=== PATIENT | female | born 1955 | race African-American/Black ===

== ENCOUNTER 2016-10-30 12:49 | Inpatient (IN) | payer OTHER ==
[~2016-10-30] VITALS: Ht 162.6 cm; Wt 138.0 kg
[2016-10-30] VITALS (9 sets, daily range): BP systolic 109–170; BP diastolic 58–87
[~2016-10-30 12:49] MED LIST: ACET325T21 PO; ALBU2.5V5 NEB; ARIP30TA PO; ATOR40TA59 PO; BACI1OIN5 TP; BREO ELLIPTA 11 EACH IH; BUPR150T11 PO; BUPR75TA5 PO; BUSP15TA PO; BUSP5POW MC; CITA20TA9 PO; CLON0.5T PO; CYCL2DRO OP; FLUT1DIS3 IH; FURO-69 PO; HYDR-2165 PO; HYDR-2666 PO; IBUP-1007 PO; LABE100T3 PO; LEVO25TA4 PO; LISI10TA2 PO; LOPE1TAB4 PO; METO25TA9 PO; NAPR500T PO; OMEP20CA9 PO; PANT40TA3 PO; PHEN118S5 PO; QUET25TA5 PO; TRAZ100T12 PO; VENTOLIN HFA18 GM INH
[2016-10-30] MEDS ORDERED: KETOROLAC 15 MG/ML VIAL. IV ONE (13:15)
[2016-10-30 13:19] LABS: BASE EXCESS COOX 11 mmol/L (-3-3); CARBON MONOXIDE 0.5 % (0.0-1.9); HCO3 COOX 41 mmol/L (21-28); METHEMOGLOBIN 0.3 % (0.0-1.9); OXYHEMOGLOBIN 85.4 %; PH COOX 7.25 (7.35-7.45); PO2 COOX 61 mmHg (65-108); SAT O2 COOX 86 % (92-99); TOTAL HEMOGLOBIN 10.3 g/dL
--- NOTE | 2016-10-30 13:21 | EKG ---
[facility] [address] [place] [address] Test Date: 2016-10-30 Test Time: 12:56:34 Pat Name: REYES PORTILLO Department: Room: Gender: F Third Helper: GARIMA : 1955 Requested By: Chris ARGUETA Order Number: [id number] Reading MD: Measurements Intervals [place] Rate: 75 P: 20 OK: 200 QRS: -37 QRSD: 90 T: 41 QT: 422 QTc: 474 Interpretive Statements SINUS RHYTHM ABNORMAL LEFT AXIS DEVIATION LEFT ANTERIOR FASCICULAR BLOCK PROLONGED QT ABNORMAL ECG RI6.01 No previous ECG available for comparison
[2016-10-30 13:23] LABS: FIO2 COOX 36; PCO2 COOX 95 mmHg (35-46)
--- NOTE | 2016-10-30 13:32 | PHYS DOC ---
Past Medical History Past Medical History: Alcoholism, Anemia, Anxiety, Asthma, Bronchitis, CHF, COPD, Depression, Diabetes-Type II, GERD, High Cholesterol, Hypertension, Hypothyroid, Other Additional Past Medical Histor: MORBID OBESITY, SUBSTANCE ABUSE, PERSONALITY DISORDER, OA, PVD Past Surgical History: , Tubal ligation Additional Past Surgical Histo: breast surgery, L LEG ORIF Alcohol Use: Sober Additional Information: SOBER > 1 YEAR Drug Use: Cocaine, Marijuana, Methamphetamine Social History Narrative: PREVIOUS USE OF COCAINE,METH,MARIJUANA Adult General Chief Complaint Chief Complaint: SHORTNESS OF BREATH HPI HPI Patient is a 60 year old female who presents by EMS from nursing facility for dyspnea. She notes dry cough, dyspnea, and anterior chest pain with cough worsening over the past few days. States she has months of dyspnea as well. She wears NC 2L at all times. She was started on amoxicillin yesterday by PCP at [place]. She denies myalgia, sore throat, nasal congestion, rash, diarrhea, dysuria. Review of Systems Review of Systems Constitutional: Denies fever or chills [] Eyes: Denies change in visual acuity, redness, or eye pain [] HENT: Denies nasal congestion or sore throat [] Respiratory: Has cough and shortness of breath [] Cardiovascular: No additional information not addressed in HPI [] GI: Denies abdominal pain, nausea, vomiting, bloody stools or diarrhea [] : Denies dysuria or hematuria [] Musculoskeletal: Denies back pain or joint pain [] Integument: Denies rash or skin lesions [] Neurologic: Denies headache, focal weakness or sensory changes [] Endocrine: Denies polyuria or polydipsia [] Current Medications Current Medications Current Medications Medications (Trade) Dose Ordered Sig/Vickie Start Time Stop Time Status Last Admin Dose Admin Ketorolac Tromethamine (Toradol) 15 mg 1X ONCE 10/30/16 13:15 10/30/16 13:16 DC 10/30/16 13:49 15 MG Allergies Allergies Allergies Coded Allergies Type Severity Reaction Last Updated Verified clonidine Allergy Severe swelling 01/13/15 Yes influenza virus vaccine qs (36 mos and up) Allergy Intermediate Yes meperidine HCl Allergy Intermediate 01/13/15 Yes pneumococcal vaccine Allergy Intermediate 09/01/15 Yes I S O L A T I O N *CONTACT* Allergy Unknown 10/16/15 Yes Physical Exam Physical Exam Constitutional: Well developed, well nourished, no acute distress, non-toxic appearance. Sleepy, but arouses to voice [] HENT: Normocephalic, atraumatic, bilateral external ears normal, oropharynx moist, no oral exudates, nose normal. [] Eyes: PERRLA, EOMI, conjunctiva normal, no discharge. [] Neck: Normal range of motion, no tenderness, supple, no stridor. [] Cardiovascular:Heart rate regular rhythm [] Lungs & Thorax: Bilateral breath sounds clear to auscultation [] Abdomen: Bowel sounds normal, soft, no tenderness. [] Skin: Warm, dry, no erythema, no rash. [] Back: No tenderness, no CVA tenderness. [] Extremities: No tenderness, ROM intact, no edema. [] Neurologic: Sleepy but arouses to voice, Oriented X 3, normal motor function, normal sensory function, no focal deficits noted. [] Psychologic: Affect normal, judgement normal, mood normal. [] Current Patient Data Vital Signs Vital Signs Date Time Temp Pulse Resp B/P Pulse Ox O2 Delivery O2 Flow Rate FiO2 10/30/16 12:50 97.9 70 20 180/97 90 Nasal Cannula 5 97.9 Lab Values Laboratory Tests Test 10/30/16 13:07 O2 Saturation 86% (92-99) L Arterial Blood pH 7.25 (7.35-7.45) L Arterial Blood pCO2 at Patient Temp 95mmHg (35-46) *H Arterial Blood pO2 at Patient Temp 61mmHg (65-108) L Arterial Blood HCO3 41mmol/L (21-28) H Arterial Blood Base Excess 11mmol/L (-3-3) H Oxyhemoglobin 85.4% Methemoglobin 0.3% (0.0-1.9) Carbon Monoxide, Quantitative 0.5% (0.0-1.9) FiO2 36 EKG EKG EKG as interpreted by me as normal sinus rhythm, rate 75, no ST-T changes, normal intervals, no ectopy Radiology/Procedures Radiology/Procedures Chest x-ray as interpreted by me with bilateral, right greater than left, infiltrates suggestive of pulmonary edema versus infection Course & Med Decision Making Course & Med Decision Making Pertinent Labs and Imaging studies reviewed. (See chart for details) She has acute hypercarbic hypoxemic respiratory failure likely due to COPD exacerbation with possible pneumonia. Treated with steroids, antibiotics and BiPAP. Also has mild elevation in pro-BNP. She is tolerating BiPAP well. Will admit to ICU. Discussed case with Dr. Martinez, who will admit. Pulmonology and Cardiology consults placed. Dragon Disclaimer Dragon Disclaimer This electronic medical record was generated, in whole or in part, using a voice recognition dictation system. Critical Care Time Critical care time was 40 minutes exclusive of procedures. Departure Departure Impression: Primary Impression: Acute and chronic respiratory failure ([id number]) Additional Impression: COPD exacerbation Disposition: ADMITTED INPATIENT Condition: CRITICAL Referrals: IRAIS KENNEY MD (PCP) Problem Qualifiers Primary Impression: Acute and chronic respiratory failure ([id number]) Respiratory failure complication: hypoxia and hypercapnia Qualified Code: J96.21 - Acute and chronic respiratory failure with hypoxia Chris ARGUETA MD Oct 30, 2016 13:32
[2016-10-30 13:44] LABS: BASO # 0.1 x10^3/uL (0.0-0.2); BASO % 1 % (0-3); EOS % 5 % (0-3); HEMATOCRIT 32.6 % (36.0-47.0); LYMPH # 1.7 x10^3/uL (1.0-4.8); LYMPH % 19 % (24-48); MEAN CORPUSCULAR HEMOGLOBIN 29 pg (25-35); MEAN CORPUSCULAR HGB CONC 31 g/dL (31-37); MEAN CORPUSCULAR VOLUME 94 fL (79-100); MONO % 10 % (0-9); NEUT % 66 % (31-73); PLATELET COUNT 214 x10^3/uL (140-400); RED BLOOD COUNT 3.45 x10^6/uL (3.50-5.40); RED CELL DISTRIBUTION WIDTH 15.2 % (11.5-14.5); WHITE BLOOD COUNT 9.3 x10^3/uL (4.0-11.0)
[2016-10-30] MEDS ORDERED: PIP/TAZO PER PHARMACY MC PRN (13:45)
[2016-10-30] MEDS ORDERED: VANCOMYCIN 2 GM in IV NORMAL SALINE 500ML BAG 500 ML IV ONE (13:45)
[2016-10-30] MEDS ORDERED: VANCOMYCIN PER PHARMACY MC PRN (13:45)
[2016-10-30] MEDS ORDERED: LEVOFLOXACIN PER PHARMACY MC PRN (13:45)
[2016-10-30] MEDS ORDERED: methylPREDNISolone SOD SUCC PF 125 MG/2 ML VIAL. IV ONE (13:45)
[2016-10-30] MEDS ORDERED: PIPERACILLIN/TAZOBACTAM 4.5 GM in IV NORMAL SALINE 100ML 100 ML IV ONE (13:45)
[2016-10-30 13:53] LABS: BILIRUBIN,URINE SMALL (NEG); GLUCOSE,URINE NEGATIVE (NEG); NITRITE,URINE NEGATIVE (NEG); PROTEIN,URINE NEGATIVE (NEG-TRACE); UROBILINOGEN,URINE 0.2 mg/dL (0.2 mg/dL)
[2016-10-30 13:55] LABS: CALCIUM 8.8 mg/dL (8.5-10.1); CREATININE 0.9 mg/dL (0.6-1.0); GFR 77.3; POTASSIUM 3.9 mmol/L (3.5-5.1)
--- NOTE | 2016-10-30 13:55 | RAD ---
Indication shortness of breath. A single view of the chest was obtained and is compared to a study 07/25/2016. Cardiomegaly is unchanged. There are patchy bilateral pulmonary infiltrates suggesting superimposed congestive heart failure. A consolidated pneumonia is not seen. Significant pleural fluid is not present. IMPRESSION: Unchanged cardiomegaly. Patchy pulmonary infiltrates in both lungs is compatible with superimposed congestive heart failure
[2016-10-30] MEDS ORDERED: IV NORMAL SALINE 1000ML BAG 1,000 ML IV SCH (14:01)
[2016-10-30 14:05] LABS: BACTERIA,URINE 0 /HPF (0-FEW); SQUAMOUS EPITHELIAL CELL,UR MOD /LPF
--- NOTE | 2016-10-30 14:12 | ACF ---
Admission Forms Criteria RESPIRATORY FAILURE [facility] Clinical Indications for Admission to Inpatient Care (Place 'X' for any and all applicable criteria): Hospital admission is needed for appropriate care of the patient because of acute respiratory failure or insufficiency as indicated by ANY ONE of the following(1)(2)(3)(4)(5)(6)(7)(8): [ ]I. Mechanical ventilation needed (acute invasive or noninvasive) [X]II. Severe ventilation deficit as indicated by ANY ONE of the following (9) [X]a) Respiratory acidosis (pH less than 7.32 and partial pressure of carbon dioxide greater than 40 mm Hg (5.3 kPa)) [X]b) Partial pressure of carbon dioxide greater than 44 mm Hg (5.9 kPa ) (new) [ ]c) Airflow measurements less than 25% of predicted (eg, peak expiratory flow rate less than 100 L/minute) [ ]d) Forced vital capacity less than 15 mL/kg of ideal body weight, or 50% decrease in vital capacity from baseline [ ]III. Noncardiac pulmonary edema not resolving with rapid emergency treatment (8) [ ]IV. Severe respiratory distress as indicated by ANY ONE of the following: [ ]a) Severe tachypnea (respiratory rate greater than 30, greater than 45 for 6-month-old, greater than 60 for ) [ ]b) Severe hypoxemia (partial pressure of oxygen less than 50 mm Hg ( 6.7 kPa) on greater than 50% oxygen or partial pressure of oxygen to FIO2 ratio less than 200) [ ]c) Mental status deterioration from respiratory disease [ ]V. Airway obstruction or inadequate protection [A](10)(11) The original [employer] content created by [employer] has been revised. The portions of the content which have been revised are identified through the use of italic text or in bold, and [employer] has neither reviewed nor approved the modified material. All other unmodified content is copyright [employer]. Please see references footnoted in the original [employer] edition 2016 Admission Criteria Met?: Yes SAL SWARTZ Oct 30, 2016 14:12
[2016-10-30 14:15] LABS: OBC FLU VALID
[2016-10-30] MEDS ORDERED: ONDANSETRON PF 4 MG/2 ML VIAL. IV PRN ×2 (14:15→15:30)
[2016-10-30] MEDS ORDERED: ACETAMINOPHEN 325 MG TABLET. PO PRN ×3 (14:15→15:30)
[2016-10-30 14:18] LABS: % BASOS 2 % (0-3); % EOS 1 % (0-5)
[2016-10-30 14:19] LABS: PLT ESTIMATE ADEQUATE (ADEQUATE); POLYCHROMASIA PRESENT; STOMATOCYTES MOD
[2016-10-30 14:20] LABS: ANISOCYTOSIS SLIGHT
[2016-10-30] MEDS ORDERED: DO NOT USE 40 MG/0.4 ML DISP.SYRIN SQ SCH (15:30)
[2016-10-30] MEDS ORDERED: ALBUTEROL SULFATE 2.5 MG/3 ML NEBU. NEB PRN ×3 (15:30→15:45)
[2016-10-30] MEDS ORDERED: FUROSEMIDE 40 MG/4 ML VIAL IVP ONE (15:30)
--- NOTE | 2016-10-30 15:30 | PDOC1 ---
History and Physical Date of Admission Date of Admission 10/30/16 Identification/Chief Complaint Chief Complaint sob Problems: Source Source: Chart review, Patient History of Present Illness History of Present Illness HPI HPI Patient is a 60 year old female who presents by EMS from nursing facility for dyspnea. Pt use home o2 2 L. now on bipap in ER. pT admitted having cough, sob, maybe fever ,in SNF, but she is very sleeping, cannot give a good history. pt was here 07/2016 for COPD. She was started on amoxicillin yesterday by PCP at [place]. pt denies chest pain, N/V. Past Medical History Cardiovascular: AFIB, HTN, Hyperlipidemia Pulmonary: COPD, Pneumonia, Other CENTRAL NERVOUS SYSTEM: Other GI: GERD Psych: Anxiety, Bipolar, Depression Renal/: Urinary Incontinence Endocrine: Hypothyroidism Past Surgical History Past Surgical History: Cataract Removal, , Tubal Ligation, Tonsillectomy, Other Family History Family History: No Significant Social History Smoke: No ALCOHOL: none Drugs: None, Cocaine Current Problem List Problem List Problems Medical Problems: (1) Acute and chronic respiratory failure ([id number]) Status: Acute Current Medications Current Medications Current Medications Medications (Trade) Dose Ordered Sig/Vickie Start Time Stop Time Status Last Admin Dose Admin Acetaminophen (Tylenol) 650 mg PRN Q4HRS PRN 10/30/16 14:15 10/31/16 14:14 Fentanyl Citrate 50 mcg 50 mcg PRN Q2HR PRN 10/30/16 14:15 10/31/16 14:14 Ketorolac Tromethamine (Toradol) 15 mg 1X ONCE 10/30/16 13:15 10/30/16 13:16 DC 10/30/16 13:49 15 MG Levofloxacin/ Dextrose 150 ml @ 100 mls/hr Q24H 10/30/16 14:00 Levofloxacin/ Dextrose (Levaquin Per Pharmacy) 1 each PRN DAILY PRN 10/30/16 13:45 Methylprednisolone Sodium Succinate 125 mg 125 mg 1X ONCE 10/30/16 13:45 10/30/16 13:46 DC 10/30/16 13:47 125 MG Ondansetron HCl (Zofran) 4 mg PRN Q8HRS PRN 10/30/16 14:15 10/31/16 14:14 Piperacillin Sod/ Tazobactam Sod (Zosyn Per Pharmacy) 1 each PRN DAILY PRN 3/25/17 13:45 Piperacillin Sod/ Tazobactam Sod 4.5 gm/Sodium Chloride 100 ml @ 200 mls/hr 1X ONCE 10/30/16 13:45 10/30/16 14:14 DC 10/30/16 13:54 200 MLS/HR Piperacillin Sod/ Tazobactam Sod/ Sodium Chloride (Zosyn/Iv Sodium Chloride 0.9% 100ml) 100 ml @ 200 mls/hr Q6HRS 10/31/16 00:00 Sodium Chloride (Iv Sodium Chloride 0.9% 1000ml Bag) 1,000 ml @ 100 mls/hr Q10H 10/30/16 14:01 10/31/16 14:00 Vancomycin HCl (Vanco Per Pharmacy) 1 each PRN DAILY PRN 10/30/16 13:45 Vancomycin HCl 2 gm/Sodium Chloride 500 ml @ 250 mls/hr 1X ONCE 10/30/16 13:45 10/30/16 15:44 Allergies Allergies Allergies Coded Allergies Type Severity Reaction Last Updated Verified clonidine Allergy Severe swelling 01/13/15 Yes influenza virus vaccine qs 2014- (36 mos and up) Allergy Intermediate Yes meperidine HCl Allergy Intermediate 01/13/15 Yes pneumococcal vaccine Allergy Intermediate 09/01/15 Yes I S O L A T I O N *CONTACT* Allergy Unknown 10/16/15 Yes ROS Review of System CONSTITUTIONAL: No fever or chills EYES: No recent changes SKIN: No rash or itching CARDIOVASCULAR: No chest pain, syncope, palpitations, or edema RESPIRATORY: No SOB or cough GASTROINTESTINAL: No nausea, vomiting or abdominal pain NEUROLOGICAL: No headaches or weakness ENDOCRINE: No cold or heat intolerance GENITOURINARY: No urgency or frequency of urination MUSCULOSKELETAL: No back pain or joint pain LYMPHATICS: No enlarged lymph nodes PSYCHIATRIC: No anxiety or depression Physical Exam Physical Exam GEN.: No apparent distress. Alert and orientedx3, very sleepy, arousable. follow commands HEENT: Head is normocephalic, atraumatic NECK: Supple. LUNGS: bl mild wheezing, on bipap. HEART: RRR, S1, S2 present. Peripheral pulses intact ABDOMEN: Soft, nontender. Positive bowel sounds. obese. EXTREMITIES: Without any cyanosis. bl leg 1+ edema NEUROLOGIC: Normal speech, normal tone PSYCHIATRIC: Normal affect, normal mood. SKIN: No ulcerations Vitals Vitals Vital Signs Date Time Temp Pulse Resp B/P Pulse Ox O2 Delivery O2 Flow Rate FiO2 10/30/16 14:22 69 22 147/73 96 BiPAP/CPAP 10/30/16 12:50 97.9 5 97.9 Labs Labs Laboratory Tests Test 10/30/16 13:07 10/30/16 13:35 10/30/16 13:42 10/30/16 13:44 O2 Saturation 86% (92-99) Arterial Blood pH 7.25 (7.35-7.45) Arterial Blood pCO2 at Patient Temp 95mmHg (35-46) Arterial Blood pO2 at Patient Temp 61mmHg (65-108) Arterial Blood HCO3 41mmol/L (21-28) Arterial Blood Base Excess 11mmol/L (-3-3) Oxyhemoglobin 85.4% Methemoglobin 0.3% (0.0-1.9) Carbon Monoxide, Quantitative 0.5% (0.0-1.9) FiO2 36 White Blood Count 9.3x10^3/uL (4.0-11.0) Red Blood Count 3.45x10^6/uL (3.50-5.40) Hemoglobin 10.0g/dL (12.0-15.5) Hematocrit 32.6% (36.0-47.0) Mean Corpuscular Volume 94fL (79-100) Mean Corpuscular Hemoglobin 29pg (25-35) Mean Corpuscular Hemoglobin Concent 31g/dL (31-37) Red Cell Distribution Width 15.2% (11.5-14.5) Platelet Count 214x10^3/uL (140-400) Neutrophils (%) (Auto) 66% (31-73) Lymphocytes (%) (Auto) 19% (24-48) Monocytes (%) (Auto) 10% (0-9) Eosinophils (%) (Auto) 5% (0-3) Basophils (%) (Auto) 1% (0-3) Neutrophils # (Auto) 6.1x10^3uL (1.8-7.7) Lymphocytes # (Auto) 1.7x10^3/uL (1.0-4.8) Monocytes # (Auto) 0.9x10^3/uL (0.0-1.1) Eosinophils # (Auto) 0.5x10^3/uL (0.0-0.7) Basophils # (Auto) 0.1x10^3/uL (0.0-0.2) Segmented Neutrophils % 65% (35-66) Lymphocytes % 21% (24-48) Atypical Lymphocytes % (Manual) 1% (0-0) Monocytes % 8% (0-10) Eosinophils % 1% (0-5) Basophils % 2% (0-3) Metamyelocytes % 1% (0-0) Myelocytes % 1% (0-0) Platelet Estimate Adequate (ADEQUATE) Giant Platelets Few Polychromasia Present Basophilic Stippling Present Anisocytosis Slight Stomatocytes Mod Sodium Level 144mmol/L (136-145) Potassium Level 3.9mmol/L (3.5-5.1) Chloride Level 101mmol/L (98-107) Carbon Dioxide Level 38mmol/L (21-32) Anion Gap 5 (6-14) Blood Urea Nitrogen 9mg/dL (7-20) Creatinine 0.9mg/dL (0.6-1.0) Estimated GFR (Cockcroft-Gault) 77.3 Glucose Level 103mg/dL (70-99) Lactic Acid Level 0.7mmol/L (0.4-2.0) Calcium Level 8.8mg/dL (8.5-10.1) Troponin I Quantitative < 0.017ng/mL (0.000-0.055) PI-Qim-U-Type Natriuretic Peptide 2021pg/mL (0-124) Urine Collection Type Unknown Urine Color Yellow Urine Clarity Clear Urine pH 6.0 Urine Specific [place] 1.025 Urine Protein Negativemg/dL (NEG-TRACE) Urine Glucose (UA) Negativemg/dL (NEG) Urine Ketones (Stick) Negativemg/dL (NEG) Urine Blood Negative (NEG) Urine Nitrite Negative (NEG) Urine Bilirubin Small (NEG) Urine Urobilinogen Dipstick 0.2mg/dL (0.2 mg/dL) Urine Leukocyte Esterase Small (NEG) Urine RBC 3-5/HPF (0-2) Urine WBC 11-20/HPF (0-4) Urine Squamous Epithelial Cells Mod/LPF Urine Bacteria 0/HPF (0-FEW) Urine Hyaline Casts Many/HPF Urine Mucus Mod/LPF Influenza Type A Antigen Negative (NEGATIVE) Influenza Type B Antigen Negative (NEGATIVE) Laboratory Tests Test 10/30/16 13:07 10/30/16 13:35 10/30/16 13:42 10/30/16 13:44 O2 Saturation 86% (92-99) Arterial Blood pH 7.25 (7.35-7.45) Arterial Blood pCO2 at Patient Temp 95mmHg (35-46) Arterial Blood pO2 at Patient Temp 61mmHg (65-108) Arterial Blood HCO3 41mmol/L (21-28) Arterial Blood Base Excess 11mmol/L (-3-3) Oxyhemoglobin 85.4% Methemoglobin 0.3% (0.0-1.9) Carbon Monoxide, Quantitative 0.5% (0.0-1.9) FiO2 36 White Blood Count 9.3x10^3/uL (4.0-11.0) Red Blood Count 3.45x10^6/uL (3.50-5.40) Hemoglobin 10.0g/dL (12.0-15.5) Hematocrit 32.6% (36.0-47.0) Mean Corpuscular Volume 94fL (79-100) Mean Corpuscular Hemoglobin 29pg (25-35) Mean Corpuscular Hemoglobin Concent 31g/dL (31-37) Red Cell Distribution Width 15.2% (11.5-14.5) Platelet Count 214x10^3/uL (140-400) Neutrophils (%) (Auto) 66% (31-73) Lymphocytes (%) (Auto) 19% (24-48) Monocytes (%) (Auto) 10% (0-9) Eosinophils (%) (Auto) 5% (0-3) Basophils (%) (Auto) 1% (0-3) Neutrophils # (Auto) 6.1x10^3uL (1.8-7.7) Lymphocytes # (Auto) 1.7x10^3/uL (1.0-4.8) Monocytes # (Auto) 0.9x10^3/uL (0.0-1.1) Eosinophils # (Auto) 0.5x10^3/uL (0.0-0.7) Basophils # (Auto) 0.1x10^3/uL (0.0-0.2) Segmented Neutrophils % 65% (35-66) Lymphocytes % 21% (24-48) Atypical Lymphocytes % (Manual) 1% (0-0) Monocytes % 8% (0-10) Eosinophils % 1% (0-5) Basophils % 2% (0-3) Metamyelocytes % 1% (0-0) Myelocytes % 1% (0-0) Platelet Estimate Adequate (ADEQUATE) Giant Platelets Few Polychromasia Present Basophilic Stippling Present Anisocytosis Slight Stomatocytes Mod Sodium Level 144mmol/L (136-145) Potassium Level 3.9mmol/L (3.5-5.1) Chloride Level 101mmol/L (98-107) Carbon Dioxide Level 38mmol/L (21-32) Anion Gap 5 (6-14) Blood Urea Nitrogen 9mg/dL (7-20) Creatinine 0.9mg/dL (0.6-1.0) Estimated GFR (Cockcroft-Gault) 77.3 Glucose Level 103mg/dL (70-99) Lactic Acid Level 0.7mmol/L (0.4-2.0) Calcium Level 8.8mg/dL (8.5-10.1) Troponin I Quantitative < 0.017ng/mL (0.000-0.055) UZ-Bvm-M-Type Natriuretic Peptide 2021pg/mL (0-124) Urine Collection Type Unknown Urine Color Yellow Urine Clarity Clear Urine pH 6.0 Urine Specific [place] 1.025 Urine Protein Negativemg/dL (NEG-TRACE) Urine Glucose (UA) Negativemg/dL (NEG) Urine Ketones (Stick) Negativemg/dL (NEG) Urine Blood Negative (NEG) Urine Nitrite Negative (NEG) Urine Bilirubin Small (NEG) Urine Urobilinogen Dipstick 0.2mg/dL (0.2 mg/dL) Urine Leukocyte Esterase Small (NEG) Urine RBC 3-5/HPF (0-2) Urine WBC 11-20/HPF (0-4) Urine Squamous Epithelial Cells Mod/LPF Urine Bacteria 0/HPF (0-FEW) Urine Hyaline Casts Many/HPF Urine Mucus Mod/LPF Influenza Type A Antigen Negative (NEGATIVE) Influenza Type B Antigen Negative (NEGATIVE) VTE Prophylaxis Ordered VTE Prophylaxis Devices: Yes VTE Pharmacological Prophylaxi: Yes Assessment/Plan Assessment/Plan 1. acute on chronic hypoxic and hypercapnic resp failure 2. copd exacerbation 3. acute on chronic diastolic chf 4. obesity hypoventilation 5. dm2, no meds 6. htn 7. hld 8. hypothyroidism 9. anemia, chronic 10. h/o alcoholism 11. anxiety, personality disorder 12. SNF resident 13. h/o drug abuse plan: 1. pulm, card consult 2. chest CT 3. dc zosyn, vanco, cont levaquin for now duoneb, solumedrol 4. lasix x1 5. cont home meds, hold sedative meds for now 6. bipap for now, ICU care 7. labs tmr. check drug tox. ptot dvt, gi ppx BRUNA WILLIAMSON MD Oct 30, 2016 15:30
[2016-10-30] MEDS: LISINOPRIL 10 MG TABLET PO SCH (16:00)
[2016-10-30] MEDS: METOPROLOL SUCC 24HR ER 25 MG TAB.ER.24H. PO SCH (16:00)
[2016-10-30] MEDS: IPRATRPIUM/ALBUTEROL 0.5/2.5MG 3 ML NEBU. NEB SCH ×2 (16:00→20:27)
[2016-10-30] MEDS: methylPREDNISolone SOD SUCC PF 125 MG/2 ML VIAL. IV SCH ×2 (17:54→21:07)
[2016-10-30] MEDS ORDERED: DEXTROSE 50% 25 GM / 50ML DISP.SYRIN. IV PRN (19:15)
[2016-10-30 19:16] LABS: BARBITURATES NEG (NEG); BENZODIAZEPINES NEG (NEG); CANNABINOIDS NEG (NEG); COCAINE NEG (NEG); METHADONE NEG (NEG); OPIATES POS (NEG); PHENCYCLIDINE NEG (NEG)
[2016-10-30 19:23] LABS: ETHANOL, URINE NEG (NEG)
[2016-10-30] MEDS: BUDESONIDE 0.5 MG/2 ML NEBU. NEB SCH (20:27)
[2016-10-30] MEDS: busPIRone 5 MG TABLET. PO SCH (21:00)
[2016-10-30] MEDS: ATORVASTATIN CALCIUM 40 MG TABLET. PO SCH (21:00)
[2016-10-30] MEDS: CITALOPRAM 20 MG TABLET. PO SCH (21:00)
[2016-10-30] MEDS: buPROPion SR 150 MG TABLET.SA PO SCH (21:00)
[2016-10-30] MEDS ORDERED: ENOXAPARIN ** NOTE DOSE ** SYRINGE SQ SCH (21:00)
[2016-10-31] VITALS (13 sets, daily range): BP systolic 94–179; BP diastolic 40–91
[2016-10-31] MEDS ORDERED: PIPERACILLIN/TAZOBACTAM 4.5 GM in IV NORMAL SALINE 100ML 100 ML IV SCH ×2
[2016-10-31] MEDS: FENTANYL PF 100 MCG/2 ML VIAL. IV PRN ×2 (02:17→05:00)
[2016-10-31] MEDS: methylPREDNISolone SOD SUCC PF 125 MG/2 ML VIAL. IV SCH (05:00)
[2016-10-31 05:22] LABS: BASO % 0 % (0-3); EOS % 0 % (0-3); HEMATOCRIT 31.7 % (36.0-47.0); HEMOGLOBIN 9.9 g/dL (12.0-15.5); LYMPH # 0.7 x10^3/uL (1.0-4.8); LYMPH % 8 % (24-48); MEAN CORPUSCULAR HEMOGLOBIN 29 pg (25-35); MEAN CORPUSCULAR HGB CONC 31 g/dL (31-37); MEAN CORPUSCULAR VOLUME 93 fL (79-100); MONO % 1 % (0-9); NEUT % 91 % (31-73); PLATELET COUNT 193 x10^3/uL (140-400); RED BLOOD COUNT 3.42 x10^6/uL (3.50-5.40); RED CELL DISTRIBUTION WIDTH 14.6 % (11.5-14.5)
[2016-10-31 05:32] LABS: CALCIUM 8.9 mg/dL (8.5-10.1); CREATININE 0.8 mg/dL (0.6-1.0); GFR 88.5; POTASSIUM 3.7 mmol/L (3.5-5.1)
[2016-10-31 06:18] LABS: PLT ESTIMATE ADEQUATE (ADEQUATE)
[2016-10-31] MEDS: LEVOTHYROXINE 25 MCG TABLET. PO SCH (07:00)
[2016-10-31] MEDS: PANTOPRAZOLE 40 MG TABLET. PO SCH (07:30)
[2016-10-31] MEDS: BUDESONIDE 0.5 MG/2 ML NEBU. NEB SCH ×2 (07:36→19:55)
[2016-10-31] MEDS: IPRATRPIUM/ALBUTEROL 0.5/2.5MG 3 ML NEBU. NEB SCH ×4 (07:37→19:55)
[2016-10-31] MEDS: INSULIN ASPART 300 UNITS/3 ML INSULN.PEN SQ SCH ×5 (08:00→17:00)
[2016-10-31] MEDS: METOPROLOL SUCC 24HR ER 25 MG TAB.ER.24H. PO SCH (09:00)
[2016-10-31] MEDS: busPIRone 5 MG TABLET. PO SCH ×3 (09:00→21:00)
[2016-10-31] MEDS: buPROPion SR 150 MG TABLET.SA PO SCH ×3 (09:00→21:00)
[2016-10-31] MEDS: LISINOPRIL 10 MG TABLET PO SCH (09:00)
--- NOTE | 2016-10-31 09:26 | PDOC ---
Provider Note Provider Note CARDIOLOGY CONSULTATION NOTE: HPI; Ms. Schmidt is a 60 y.o woman presenting with dyspnea for 2 weeks. In the ER she was diagnosed with possible HF and given Lasix 40mg IVP. Since then, she has done better and now transitioned to [place] from . Today denies any chest pain but her history is quite limited. She appears to be confused at the moment. Denies any dyspnea. PAST MEDICAL HISTORY: 1. Atrial fibrillation. 2. Hypertension. 3. Dyslipidemia. 4. COPD. 5. Hypothyroidism. 6. Morbid obesity. PAST SURGICAL HISTORY: Cataracts, , tubal ligation, ORIF of the left femur. FAMILY HISTORY: Noncontributory. SOCIAL HISTORY: No alcohol, tobacco or illicit drug use. She currently lives in a long term. She reports that she has not used cocaine or tobacco products for over a year. ALLERGIES: Multiple to clonidine and influenza vaccine, meperidine and pneumococcal vaccine. CURRENT CARDIOVASCULAR MEDICATIONS: As follows: 1. Atorvastatin 40 mg daily. 2. Lovenox 60 mg b.i.d. 3. Metoprolol 25 mg XL. 4. Lisinopril 10 mg daily. REVIEW OF SYSTEMS: Negative for 05/21 systems reviewed, unless otherwise mentioned above in HPI. PHYSICAL EXAMINATION: VITAL SIGNS: Afebrile, HR 80's. (Initially hypertensive, now better controlled 140/80's). Pox- 96% on 2L GENERAL: She is alert and oriented, in no acute distress. Mildly tachypneic. HEART: Regular rate and rhythm without any murmurs, rubs, or gallops. LUNGS: Clear to auscultation bilaterally. ABDOMEN: Obese, nontender, nondistended. EXTREMITIES: No clubbing, cyanosis, or edema. NEUROLOGIC: No focal deficits. SKIN: No rashes. MUSCULOSKELETAL: No trauma. DIAGNOSTIC STUDIES: EKG reveals SR. No ischemic findings. CXR with possible vascular congestion. CT chest pending Trop neg x 1. Echo 10/2015 - Normal LV function. IMPRESSION: 1. Acute on chronic diastolic HF. 2. Atrial fibrillation history, currently on Lovenox 60mg sc bid. 3. Hypertension. 4. Morbid obesity. 5. Polysubstance abuse. RECS: 1. Continue diuresis today. 2. Continue home meds but clarify reason for Lovenox 60mg bid? afib?. 3. Will repeat echo. 4. Consider neurologic evaluation for her mentation changes, suspect metabolic encephalopathy. Thanks for consultation. MARIE CARABALLO MD Oct 31, 2016 09:26
[2016-10-31] MEDS ORDERED: DEXTROSE 50% 25 GM / 50ML DISP.SYRIN. IV PRN (10:15)
--- NOTE | 2016-10-31 10:15 | PDOC ---
PROGRESS NOTES Chief Complaint Chief Complaint 1. acute on chronic hypoxic and hypercapnic resp failure 2. copd exacerbation 3. acute on chronic diastolic chf 4. obesity hypoventilation 5. dm2, no meds 6. htn 7. hld 8. hypothyroidism 9. anemia, chronic 10. h/o alcoholism 11. anxiety, personality disorder 12. SNF resident 13. h/o drug abuse 14. MEtabolc encephalopathy, cognitive impairment History of Present Illness History of Present Illness COnfused, does "not believe" she is in the hospital She claims she is SNU Needed BIPAP short time? SNU resident for 1.5 yrs Wants to talk to her family bec she does not want to live in SNU anymore, claims she can take care of herself (she cant) CXR I have personally reviewed: IMPRESSION: Unchanged cardiomegaly. Patchy pulmonary infiltrates in both lungs is compatible with superimposed congestive heart failure AMbulates with wheelchair in SNU PLAN: Ok to eat OK to t.o ICU CPM PT./OT Back to SNU upon dc Follow pulmo and cards recs Vitals Vitals Vital Signs Date Time Temp Pulse Resp B/P Pulse Ox O2 Delivery O2 Flow Rate FiO2 10/31/16 08:51 94 BiPAP/CPAP 10/31/16 08:00 97.7 86 25 151/66 97.7 10/31/16 04:00 5.0 Physical Exam General: Alert, Cooperative, No acute distress Heart: Regular rate, Normal S1, Normal S2, No murmurs Lungs: Clear Abdomen: No tenderness, No hepatosplenomegaly Extremities: No clubbing, No cyanosis, No edema, Normal pulses Skin: No rashes, No breakdown, No significant lesion Labs LABS Laboratory Tests Test 10/30/16 13:07 10/30/16 13:35 10/30/16 13:42 10/30/16 13:44 O2 Saturation 86% (92-99) Arterial Blood pH 7.25 (7.35-7.45) Arterial Blood pCO2 at Patient Temp 95mmHg (35-46) Arterial Blood pO2 at Patient Temp 61mmHg (65-108) Arterial Blood HCO3 41mmol/L (21-28) Arterial Blood Base Excess 11mmol/L (-3-3) Oxyhemoglobin 85.4% Methemoglobin 0.3% (0.0-1.9) Carbon Monoxide, Quantitative 0.5% (0.0-1.9) FiO2 36 White Blood Count 9.3x10^3/uL (4.0-11.0) Red Blood Count 3.45x10^6/uL (3.50-5.40) Hemoglobin 10.0g/dL (12.0-15.5) Hematocrit 32.6% (36.0-47.0) Mean Corpuscular Volume 94fL (79-100) Mean Corpuscular Hemoglobin 29pg (25-35) Mean Corpuscular Hemoglobin Concent 31g/dL (31-37) Red Cell Distribution Width 15.2% (11.5-14.5) Platelet Count 214x10^3/uL (140-400) Neutrophils (%) (Auto) 66% (31-73) Lymphocytes (%) (Auto) 19% (24-48) Monocytes (%) (Auto) 10% (0-9) Eosinophils (%) (Auto) 5% (0-3) Basophils (%) (Auto) 1% (0-3) Neutrophils # (Auto) 6.1x10^3uL (1.8-7.7) Lymphocytes # (Auto) 1.7x10^3/uL (1.0-4.8) Monocytes # (Auto) 0.9x10^3/uL (0.0-1.1) Eosinophils # (Auto) 0.5x10^3/uL (0.0-0.7) Basophils # (Auto) 0.1x10^3/uL (0.0-0.2) Segmented Neutrophils % 65% (35-66) Lymphocytes % 21% (24-48) Atypical Lymphocytes % (Manual) 1% (0-0) Monocytes % 8% (0-10) Eosinophils % 1% (0-5) Basophils % 2% (0-3) Metamyelocytes % 1% (0-0) Myelocytes % 1% (0-0) Platelet Estimate Adequate (ADEQUATE) Giant Platelets Few Polychromasia Present Basophilic Stippling Present Anisocytosis Slight Stomatocytes Mod Sodium Level 144mmol/L (136-145) Potassium Level 3.9mmol/L (3.5-5.1) Chloride Level 101mmol/L (98-107) Carbon Dioxide Level 38mmol/L (21-32) Anion Gap 5 (6-14) Blood Urea Nitrogen 9mg/dL (7-20) Creatinine 0.9mg/dL (0.6-1.0) Estimated GFR (Cockcroft-Gault) 77.3 Glucose Level 103mg/dL (70-99) Lactic Acid Level 0.7mmol/L (0.4-2.0) Calcium Level 8.8mg/dL (8.5-10.1) Troponin I Quantitative < 0.017ng/mL (0.000-0.055) SF-Apj-M-Type Natriuretic Peptide 2021pg/mL (0-124) Urine Collection Type Unknown Urine Color Yellow Urine Clarity Clear Urine pH 6.0 Urine Specific [place] 1.025 Urine Protein Negativemg/dL (NEG-TRACE) Urine Glucose (UA) Negativemg/dL (NEG) Urine Ketones (Stick) Negativemg/dL (NEG) Urine Blood Negative (NEG) Urine Nitrite Negative (NEG) Urine Bilirubin Small (NEG) Urine Urobilinogen Dipstick 0.2mg/dL (0.2 mg/dL) Urine Leukocyte Esterase Small (NEG) Urine RBC 3-5/HPF (0-2) Urine WBC 11-20/HPF (0-4) Urine Squamous Epithelial Cells Mod/LPF Urine Bacteria 0/HPF (0-FEW) Urine Hyaline Casts Many/HPF Urine Mucus Mod/LPF Influenza Type A Antigen Negative (NEGATIVE) Influenza Type B Antigen Negative (NEGATIVE) Test 10/30/16 18:50 10/30/16 21:05 10/31/16 04:45 Urine Opiates Screen Pos (NEG) Urine Methadone Screen Neg (NEG) Urine Barbiturates Neg (NEG) Urine Phencyclidine Screen Neg (NEG) Urine Amphetamine/Methamphetamine Neg (NEG) Urine Benzodiazepines Screen Neg (NEG) Urine Cocaine Screen Neg (NEG) Urine Cannabinoids Screen Neg (NEG) Urine Ethyl Alcohol Neg (NEG) Glucose (Fingerstick) 117mg/dL (70-99) White Blood Count 9.0x10^3/uL (4.0-11.0) Red Blood Count 3.42x10^6/uL (3.50-5.40) Hemoglobin 9.9g/dL (12.0-15.5) Hematocrit 31.7% (36.0-47.0) Mean Corpuscular Volume 93fL (79-100) Mean Corpuscular Hemoglobin 29pg (25-35) Mean Corpuscular Hemoglobin Concent 31g/dL (31-37) Red Cell Distribution Width 14.6% (11.5-14.5) Platelet Count 193x10^3/uL (140-400) Neutrophils (%) (Auto) 91% (31-73) Lymphocytes (%) (Auto) 8% (24-48) Monocytes (%) (Auto) 1% (0-9) Eosinophils (%) (Auto) 0% (0-3) Basophils (%) (Auto) 0% (0-3) Neutrophils # (Auto) 8.2x10^3uL (1.8-7.7) Lymphocytes # (Auto) 0.7x10^3/uL (1.0-4.8) Monocytes # (Auto) 0.1x10^3/uL (0.0-1.1) Eosinophils # (Auto) 0.0x10^3/uL (0.0-0.7) Basophils # (Auto) 0.0x10^3/uL (0.0-0.2) Segmented Neutrophils % 83% (35-66) Band Neutrophils % 5% (0-9) Lymphocytes % 10% (24-48) Monocytes % 1% (0-10) Metamyelocytes % 1% (0-0) Platelet Estimate Adequate (ADEQUATE) Sodium Level 144mmol/L (136-145) Potassium Level 3.7mmol/L (3.5-5.1) Chloride Level 100mmol/L (98-107) Carbon Dioxide Level 40mmol/L (21-32) Anion Gap 4 (6-14) Blood Urea Nitrogen 8mg/dL (7-20) Creatinine 0.8mg/dL (0.6-1.0) Estimated GFR (Cockcroft-Gault) 88.5 Glucose Level 119mg/dL (70-99) Calcium Level 8.9mg/dL (8.5-10.1) Review of Systems Review of Systems confused limited ROS Assessment and Plan Assessmemt and Plan Problems Medical Problems: (1) Acute and chronic respiratory failure ([id number]) Status: Acute (2) COPD exacerbation Status: Acute Problems: Comment Review of Relevant I have reviewed the following items doyle (where applicable) has been applied. Labs Laboratory Tests Test 10/30/16 13:07 10/30/16 13:35 10/30/16 13:42 10/30/16 13:44 O2 Saturation 86% (92-99) Arterial Blood pH 7.25 (7.35-7.45) Arterial Blood pCO2 at Patient Temp 95mmHg (35-46) Arterial Blood pO2 at Patient Temp 61mmHg (65-108) Arterial Blood HCO3 41mmol/L (21-28) Arterial Blood Base Excess 11mmol/L (-3-3) Oxyhemoglobin 85.4% Methemoglobin 0.3% (0.0-1.9) Carbon Monoxide, Quantitative 0.5% (0.0-1.9) FiO2 36 White Blood Count 9.3x10^3/uL (4.0-11.0) Red Blood Count 3.45x10^6/uL (3.50-5.40) Hemoglobin 10.0g/dL (12.0-15.5) Hematocrit 32.6% (36.0-47.0) Mean Corpuscular Volume 94fL (79-100) Mean Corpuscular Hemoglobin 29pg (25-35) Mean Corpuscular Hemoglobin Concent 31g/dL (31-37) Red Cell Distribution Width 15.2% (11.5-14.5) Platelet Count 214x10^3/uL (140-400) Neutrophils (%) (Auto) 66% (31-73) Lymphocytes (%) (Auto) 19% (24-48) Monocytes (%) (Auto) 10% (0-9) Eosinophils (%) (Auto) 5% (0-3) Basophils (%) (Auto) 1% (0-3) Neutrophils # (Auto) 6.1x10^3uL (1.8-7.7) Lymphocytes # (Auto) 1.7x10^3/uL (1.0-4.8) Monocytes # (Auto) 0.9x10^3/uL (0.0-1.1) Eosinophils # (Auto) 0.5x10^3/uL (0.0-0.7) Basophils # (Auto) 0.1x10^3/uL (0.0-0.2) Segmented Neutrophils % 65% (35-66) Lymphocytes % 21% (24-48) Atypical Lymphocytes % (Manual) 1% (0-0) Monocytes % 8% (0-10) Eosinophils % 1% (0-5) Basophils % 2% (0-3) Metamyelocytes % 1% (0-0) Myelocytes % 1% (0-0) Platelet Estimate Adequate (ADEQUATE) Giant Platelets Few Polychromasia Present Basophilic Stippling Present Anisocytosis Slight Stomatocytes Mod Sodium Level 144mmol/L (136-145) Potassium Level 3.9mmol/L (3.5-5.1) Chloride Level 101mmol/L (98-107) Carbon Dioxide Level 38mmol/L (21-32) Anion Gap 5 (6-14) Blood Urea Nitrogen 9mg/dL (7-20) Creatinine 0.9mg/dL (0.6-1.0) Estimated GFR (Cockcroft-Gault) 77.3 Glucose Level 103mg/dL (70-99) Lactic Acid Level 0.7mmol/L (0.4-2.0) Calcium Level 8.8mg/dL (8.5-10.1) Troponin I Quantitative < 0.017ng/mL (0.000-0.055) DE-Tni-E-Type Natriuretic Peptide 2021pg/mL (0-124) Urine Collection Type Unknown Urine Color Yellow Urine Clarity Clear Urine pH 6.0 Urine Specific [place] 1.025 Urine Protein Negativemg/dL (NEG-TRACE) Urine Glucose (UA) Negativemg/dL (NEG) Urine Ketones (Stick) Negativemg/dL (NEG) Urine Blood Negative (NEG) Urine Nitrite Negative (NEG) Urine Bilirubin Small (NEG) Urine Urobilinogen Dipstick 0.2mg/dL (0.2 mg/dL) Urine Leukocyte Esterase Small (NEG) Urine RBC 3-5/HPF (0-2) Urine WBC 11-20/HPF (0-4) Urine Squamous Epithelial Cells Mod/LPF Urine Bacteria 0/HPF (0-FEW) Urine Hyaline Casts Many/HPF Urine Mucus Mod/LPF Influenza Type A Antigen Negative (NEGATIVE) Influenza Type B Antigen Negative (NEGATIVE) Test 10/30/16 18:50 10/30/16 21:05 10/31/16 04:45 Urine Opiates Screen Pos (NEG) Urine Methadone Screen Neg (NEG) Urine Barbiturates Neg (NEG) Urine Phencyclidine Screen Neg (NEG) Urine Amphetamine/Methamphetamine Neg (NEG) Urine Benzodiazepines Screen Neg (NEG) Urine Cocaine Screen Neg (NEG) Urine Cannabinoids Screen Neg (NEG) Urine Ethyl Alcohol Neg (NEG) Glucose (Fingerstick) 117mg/dL (70-99) White Blood Count 9.0x10^3/uL (4.0-11.0) Red Blood Count 3.42x10^6/uL (3.50-5.40) Hemoglobin 9.9g/dL (12.0-15.5) Hematocrit 31.7% (36.0-47.0) Mean Corpuscular Volume 93fL (79-100) Mean Corpuscular Hemoglobin 29pg (25-35) Mean Corpuscular Hemoglobin Concent 31g/dL (31-37) Red Cell Distribution Width 14.6% (11.5-14.5) Platelet Count 193x10^3/uL (140-400) Neutrophils (%) (Auto) 91% (31-73) Lymphocytes (%) (Auto) 8% (24-48) Monocytes (%) (Auto) 1% (0-9) Eosinophils (%) (Auto) 0% (0-3) Basophils (%) (Auto) 0% (0-3) Neutrophils # (Auto) 8.2x10^3uL (1.8-7.7) Lymphocytes # (Auto) 0.7x10^3/uL (1.0-4.8) Monocytes # (Auto) 0.1x10^3/uL (0.0-1.1) Eosinophils # (Auto) 0.0x10^3/uL (0.0-0.7) Basophils # (Auto) 0.0x10^3/uL (0.0-0.2) Segmented Neutrophils % 83% (35-66) Band Neutrophils % 5% (0-9) Lymphocytes % 10% (24-48) Monocytes % 1% (0-10) Metamyelocytes % 1% (0-0) Platelet Estimate Adequate (ADEQUATE) Sodium Level 144mmol/L (136-145) Potassium Level 3.7mmol/L (3.5-5.1) Chloride Level 100mmol/L (98-107) Carbon Dioxide Level 40mmol/L (21-32) Anion Gap 4 (6-14) Blood Urea Nitrogen 8mg/dL (7-20) Creatinine 0.8mg/dL (0.6-1.0) Estimated GFR (Cockcroft-Gault) 88.5 Glucose Level 119mg/dL (70-99) Calcium Level 8.9mg/dL (8.5-10.1) Laboratory Tests Test 10/30/16 13:07 10/30/16 13:35 10/30/16 13:42 10/30/16 13:44 O2 Saturation 86% (92-99) Arterial Blood pH 7.25 (7.35-7.45) Arterial Blood pCO2 at Patient Temp 95mmHg (35-46) Arterial Blood pO2 at Patient Temp 61mmHg (65-108) Arterial Blood HCO3 41mmol/L (21-28) Arterial Blood Base Excess 11mmol/L (-3-3) Oxyhemoglobin 85.4% Methemoglobin 0.3% (0.0-1.9) Carbon Monoxide, Quantitative 0.5% (0.0-1.9) FiO2 36 White Blood Count 9.3x10^3/uL (4.0-11.0) Red Blood Count 3.45x10^6/uL (3.50-5.40) Hemoglobin 10.0g/dL (12.0-15.5) Hematocrit 32.6% (36.0-47.0) Mean Corpuscular Volume 94fL (79-100) Mean Corpuscular Hemoglobin 29pg (25-35) Mean Corpuscular Hemoglobin Concent 31g/dL (31-37) Red Cell Distribution Width 15.2% (11.5-14.5) Platelet Count 214x10^3/uL (140-400) Neutrophils (%) (Auto) 66% (31-73) Lymphocytes (%) (Auto) 19% (24-48) Monocytes (%) (Auto) 10% (0-9) Eosinophils (%) (Auto) 5% (0-3) Basophils (%) (Auto) 1% (0-3) Neutrophils # (Auto) 6.1x10^3uL (1.8-7.7) Lymphocytes # (Auto) 1.7x10^3/uL (1.0-4.8) Monocytes # (Auto) 0.9x10^3/uL (0.0-1.1) Eosinophils # (Auto) 0.5x10^3/uL (0.0-0.7) Basophils # (Auto) 0.1x10^3/uL (0.0-0.2) Segmented Neutrophils % 65% (35-66) Lymphocytes % 21% (24-48) Atypical Lymphocytes % (Manual) 1% (0-0) Monocytes % 8% (0-10) Eosinophils % 1% (0-5) Basophils % 2% (0-3) Metamyelocytes % 1% (0-0) Myelocytes % 1% (0-0) Platelet Estimate Adequate (ADEQUATE) Giant Platelets Few Polychromasia Present Basophilic Stippling Present Anisocytosis Slight Stomatocytes Mod Sodium Level 144mmol/L (136-145) Potassium Level 3.9mmol/L (3.5-5.1) Chloride Level 101mmol/L (98-107) Carbon Dioxide Level 38mmol/L (21-32) Anion Gap 5 (6-14) Blood Urea Nitrogen 9mg/dL (7-20) Creatinine 0.9mg/dL (0.6-1.0) Estimated GFR (Cockcroft-Gault) 77.3 Glucose Level 103mg/dL (70-99) Lactic Acid Level 0.7mmol/L (0.4-2.0) Calcium Level 8.8mg/dL (8.5-10.1) Troponin I Quantitative < 0.017ng/mL (0.000-0.055) PK-Odj-G-Type Natriuretic Peptide 2021pg/mL (0-124) Urine Collection Type Unknown Urine Color Yellow Urine Clarity Clear Urine pH 6.0 Urine Specific [place] 1.025 Urine Protein Negativemg/dL (NEG-TRACE) Urine Glucose (UA) Negativemg/dL (NEG) Urine Ketones (Stick) Negativemg/dL (NEG) Urine Blood Negative (NEG) Urine Nitrite Negative (NEG) Urine Bilirubin Small (NEG) Urine Urobilinogen Dipstick 0.2mg/dL (0.2 mg/dL) Urine Leukocyte Esterase Small (NEG) Urine RBC 3-5/HPF (0-2) Urine WBC 11-20/HPF (0-4) Urine Squamous Epithelial Cells Mod/LPF Urine Bacteria 0/HPF (0-FEW) Urine Hyaline Casts Many/HPF Urine Mucus Mod/LPF Influenza Type A Antigen Negative (NEGATIVE) Influenza Type B Antigen Negative (NEGATIVE) Test 10/30/16 18:50 10/30/16 21:05 10/31/16 04:45 Urine Opiates Screen Pos (NEG) Urine Methadone Screen Neg (NEG) Urine Barbiturates Neg (NEG) Urine Phencyclidine Screen Neg (NEG) Urine Amphetamine/Methamphetamine Neg (NEG) Urine Benzodiazepines Screen Neg (NEG) Urine Cocaine Screen Neg (NEG) Urine Cannabinoids Screen Neg (NEG) Urine Ethyl Alcohol Neg (NEG) Glucose (Fingerstick) 117mg/dL (70-99) White Blood Count 9.0x10^3/uL (4.0-11.0) Red Blood Count 3.42x10^6/uL (3.50-5.40) Hemoglobin 9.9g/dL (12.0-15.5) Hematocrit 31.7% (36.0-47.0) Mean Corpuscular Volume 93fL (79-100) Mean Corpuscular Hemoglobin 29pg (25-35) Mean Corpuscular Hemoglobin Concent 31g/dL (31-37) Red Cell Distribution Width 14.6% (11.5-14.5) Platelet Count 193x10^3/uL (140-400) Neutrophils (%) (Auto) 91% (31-73) Lymphocytes (%) (Auto) 8% (24-48) Monocytes (%) (Auto) 1% (0-9) Eosinophils (%) (Auto) 0% (0-3) Basophils (%) (Auto) 0% (0-3) Neutrophils # (Auto) 8.2x10^3uL (1.8-7.7) Lymphocytes # (Auto) 0.7x10^3/uL (1.0-4.8) Monocytes # (Auto) 0.1x10^3/uL (0.0-1.1) Eosinophils # (Auto) 0.0x10^3/uL (0.0-0.7) Basophils # (Auto) 0.0x10^3/uL (0.0-0.2) Segmented Neutrophils % 83% (35-66) Band Neutrophils % 5% (0-9) Lymphocytes % 10% (24-48) Monocytes % 1% (0-10) Metamyelocytes % 1% (0-0) Platelet Estimate Adequate (ADEQUATE) Sodium Level 144mmol/L (136-145) Potassium Level 3.7mmol/L (3.5-5.1) Chloride Level 100mmol/L (98-107) Carbon Dioxide Level 40mmol/L (21-32) Anion Gap 4 (6-14) Blood Urea Nitrogen 8mg/dL (7-20) Creatinine 0.8mg/dL (0.6-1.0) Estimated GFR (Cockcroft-Gault) 88.5 Glucose Level 119mg/dL (70-99) Calcium Level 8.9mg/dL (8.5-10.1) Medications Current Medications Ketorolac Tromethamine (Toradol) 15 mg 1X ONCE IV Last administered on 13:49; Start 10/30/16 at 13:15; Stop 10/30/16 at 13:16; Status DC Vancomycin HCl (Vanco Per Pharmacy) 1 each PRN DAILY PRN MC SEE COMMENTS; Start 10/30/16 at 13:45; Stop 10/30/16 at 15:31; Status DC Piperacillin Sod/ Tazobactam Sod (Zosyn Per Pharmacy) 1 each PRN DAILY PRN MC SEE COMMENTS; Start 10/30/16 at 13:45; Stop 10/30/16 at 15:31; Status DC Levofloxacin/ Dextrose (Levaquin Per Pharmacy) 1 each PRN DAILY PRN MC SEE COMMENTS; Start 10/30/16 at 13:45 Methylprednisolone Sodium Succinate 125 mg 125 mg 1X ONCE IV Last administered on 10/30/16 13:47; Start 10/30/16 at 13:45; Stop 10/30/16 at 13:46 ; Status DC Vancomycin HCl 2 gm/Sodium Chloride 500 ml @ 250 mls/hr 1X ONCE IV Last administered on 10/30/16 17:51; Start 10/30/16 at 13:45; Stop 10/30/16 at 15:44 ; Status DC Levofloxacin/ Dextrose 150 ml @ 100 mls/hr Q24H IV Last administered on 15:15; Start 10/30/16 at 14:00 Piperacillin Sod/ Tazobactam Sod 4.5 gm/Sodium Chloride 100 ml @ 200 mls/hr 1X ONCE IV Last administered on 10/30/16t 13:54; Start 10/30/16 at 13:45; Stop 10/30/16 at 14:14; Status DC Piperacillin Sod/ Tazobactam Sod/ Sodium Chloride (Zosyn/Iv Sodium Chloride 0.9 % 100ml) 100 ml @ 200 mls/hr Q6HRS IV ; Start 10/31/16 at 00:00; Stop 10/31/16 at 00:00; Status DC Ondansetron HCl (Zofran) 4 mg PRN Q8HRS PRN IV NAUSEA/VOMITING; Start 10/30/16 at 14:15; Stop 10/31/16 at 14:14 Fentanyl Citrate 50 mcg 50 mcg PRN Q2HR PRN IV PAIN Last administered on t 05:00; Start 10/30/16 at 14:15; Stop 10/31/16 at 14:14 Sodium Chloride (Iv Sodium Chloride 0.9% 1000ml Bag) 1,000 ml @ 100 mls/hr Q10H IV ; Start 10/30/16 at 14:01; Stop 10/30/16 at 15:31; Status DC Acetaminophen (Tylenol) 650 mg PRN Q4HRS PRN PO FEVER; Start 10/30/16 at 14:15 ; Stop 10/31/16 at 14:14 Acetaminophen (Tylenol) 650 mg PRN Q6HRS PRN PO PAIN; Start 10/30/16 at 15:30 Albuterol Sulfate (Ventolin Neb Soln) 2.5 mg PRN Q6HRS PRN NEB SHORTNESS OF BREATH; Start 10/30/16 at 15:30 Atorvastatin Calcium (Lipitor) 40 mg HS PO ; Start 10/30/16 at 21:00 Bupropion HCl (Wellbutrin Sr) 150 mg BID PO ; Start 10/30/16 at 21:00 Citalopram Hydrobromide (Celexa) 20 mg QHS PO ; Start 10/30/16 at 21:00 Acetaminophen/ Hydrocodone Bitart (Lortab 5/325) 1 tab PRN Q4HRS PRN PO PAIN; Start 10/30/16 at 15:30 Levothyroxine Sodium (Synthroid) 25 mcg DAILY07 PO ; Start 10/31/16 at 07:00 Lisinopril (Prinivil) 10 mg DAILY PO ; Start 10/30/16 at 16:00 Metoprolol Succinate (Toprol Xl) 25 mg DAILY PO ; Start 10/30/16 at 16:00 Buspirone HCl (Buspar) 15 mg BID PO ; Start 10/30/16 at 21:00 Non-Formulary Medication 1 each DAILY IH ; Start 10/31/16 at 09:00; Status UNV Pantoprazole Sodium (Protonix) 40 mg DAILYAC PO ; Start 10/31/16 at 07:30 Acetaminophen (Tylenol) 650 mg PRN Q6HRS PRN PO MILD PAIN / TEMP; Start at 15:30; Status UNV Ondansetron HCl (Zofran) 4 mg PRN Q6HRS PRN IV NAUSEA/VOMITING; Start 10/30/16 at 15:30 Methylprednisolone Sodium Succinate (Solu-Medrol 125mg Vial) 60 mg Q8HRS IV Last administered on 10/31/16 05:00; Start 10/30/16 at 16:00 Albuterol Sulfate (Ventolin Neb Soln) 2.5 mg PRN Q4HRS PRN NEB SHORTNESS OF BREATH; Start 10/30/16 at 15:30; Status UNV Albuterol/ Ipratropium (Duoneb) 3 ml RTQID NEB Last administered on 10/31/16 07:37; Start 10/30/16 at 16:00 Furosemide (Lasix) 40 mg 1X ONCE IVP Last administered on 10/30/16 17:51; Start 10/30/16 at 15:30; Stop 10/30/16 at 15:38; Status DC Enoxaparin Sodium (Lovenox 40mg Syringe) 40 mg Q24H SQ ; Start 10/30/16 at 15:30 ; Stop 10/30/16 at 15:41; Status DC Albuterol Sulfate (Ventolin Neb Soln) 2.5 mg PRN Q6HRS PRN NEB SHORTNESS OF BREATH; Start 10/30/16 at 15:45; Status UNV Budesonide (Pulmicort) 0.5 mg RTBID NEB Last administered on 10/31/16 07:36; Start 10/30/16 at 20:00 Enoxaparin Sodium (Lovenox 60mg Syringe) 60 mg Q12HR SQ Last administered on t 21:07; Start 10/30/16 at 21:00 Insulin Aspart (Novolog) 0-9 UNITS TIDWMEALS SQ ; Start 10/31/16 at 08:00 Dextrose 12.5 gm PRN Q15MIN PRN IV SEE COMMENTS; Start 10/30/16 at 19:15 Furosemide (Lasix) 40 mg DAILY IVP ; Start 10/31/16 at 09:30 Active Scripts Active Mucinex (Guaifenesin) 600 Mg Tablet.er 1 Tab PO BID Bactrim Ds Tablet (Sulfamethoxazole/Trimethoprim) 1 Each Tablet 1 Tab PO BID Promethazine-Dm Syrup (D-Methorphan Hb/Prometh Hcl) 118 Ml Syrup 5 Ml PO PRN Q6HRS PRN Prednisone 50 Mg Tablet 1 Tab PO DAILY Tessalon Perle (Benzonatate) 100 Mg Capsule 1 Cap PO TID Atorvastatin Calcium 40 Mg Tablet 1 Tab PO DAILY PRN Nystop (Nystatin) 1 Amy Amy 1 Amy TP BID Naprosyn (Naproxen) 500 Mg Tablet 500 Mg PO BID PRN Reported Tramadol Hcl 50 Mg Tablet 50 Mg PO 1X Wellbutrin (Bupropion Hcl) 75 Mg Tablet Unknown Dose PO BID Trazodone Hcl 50 Mg Tablet Unknown Dose PO QHS Lisinopril 10 Mg Tablet 10 Mg PO DAILY LAST DOSE GIVEN: DATE: TIME: NEXT DOSE DUE: DATE: TIME: Tolterodine Tartrate 2 Mg Tablet 4 Mg PO DAILY Diphenhydramine Hcl 25 Mg Tablet 25 Mg PO Q6HRS PRN 0 Days LAST DOSE; NEXT DOSE; IF NEEDED Advair 250-50 Diskus (Fluticasone/Salmeterol) 1 Each Disk.w.dev 1 Puff IH BID LAST DOSE; TODAY AM NEXT DOSE; TODAY PM Proair Hfa Inhaler (Albuterol Sulfate) 8.5 Gm Hfa.aer.ad 8.5 Gm IH PRN Q2HR PRN LAST DOSE; this morning NEXT DOSE; TODAY AT IF NEEDED Breo Ellipta 100-25 Mcg Inh (Fluticasone/Vilanterol) 1 Each Aer.pow.ba 1 Each IH DAILY Albuterol Sulfate Neb Soln (Albuterol Sulfate) 2.5 Mg/3 Ml Vial.neb 1 Vial NEB PRN Q6HRS PRN Hydrocodone-Apap 5-325 (Hydrocodone Bit/Acetaminophen) 1 Each Tablet 1 Tab PO PRN Q4HRS PRN Acetaminophen 325 Mg Tablet 650 Mg PO PRN Q6HRS PRN Imodium Multi-Symptom Rel Cplt (Loperamide Hcl/Simethicone) 1 Each Tablet 1 Each PO PRN Q6HRS PRN Seroquel (Quetiapine Fumarate) 25 Mg Tablet 25 Mg PO BID Omeprazole 20 Mg Capsule.dr 1 Cap PO DAILY Buspirone Hcl 15 Mg Tablet 1 Tab PO BID Atorvastatin Calcium 40 Mg Tablet 1 Tab PO HS Lisinopril 10 Mg Tablet 1 Tab PO DAILY Bupropion Hcl Sr (Bupropion Hcl) 150 Mg Tablet.er 1 Tab PO BID Levothyroxine Sodium 25 Mcg Tablet 25 Mcg PO DAILY Metoprolol Succinate ( Xl ) (Metoprolol Succinate) 25 Mg Tab.er.24h 25 Mg PO DAILY Celexa (Citalopram Hydrobromide) 20 Mg Tablet 20 Mg PO QHS Klonopin (Clonazepam) 0.5 Mg Tablet 0.5 Mg PO DAILY Vitals/I & O Vital Sign - Last 24 Hours 10/30/16 10/30/16 10/30/16 10/30/16 12:50 13:30 13:35 13:52 Temp 97.9 97.9 Pulse 70 74 70 Resp 20 25 12 B/P 180/97 154/81 169/78 Pulse Ox 90 91 90 94 O2 Delivery Nasal Cannula BiPAP/CPAP O2 Flow Rate 5 10/30/16 10/30/16 10/30/16 10/30/16 14:22 15:00 15:00 15:27 Temp 97.8 97.8 Pulse 69 66 Resp 22 28 B/P 147/73 142/72 Pulse Ox 96 93 95 O2 Delivery BiPAP/CPAP Mechanical Ventilator BiPAP/CPAP BiPAP/CPAP 10/30/16 10/30/16 10/30/16 10/30/16 16:00 16:00 16:00 16:56 Pulse 71 73 71 Resp 27 B/P 117/58 117/58 109/65 Pulse Ox 94 91 O2 Delivery BiPAP/CPAP BiPAP/CPAP 10/30/16 10/30/16 10/30/16 10/30/16 17:00 18:00 19:00 20:00 Temp 97.5 97.5 Pulse 69 71 70 82 Resp 25 20 20 24 B/P 117/58 114/62 127/68 170/87 Pulse Ox 93 99 97 96 O2 Delivery BiPAP/CPAP BiPAP/CPAP BiPAP/CPAP BiPAP/CPAP 10/30/16 10/30/16 10/30/16 10/30/16 20:00 20:27 20:31 21:00 Pulse 78 Resp 25 B/P 154/86 Pulse Ox 94 94 95 O2 Delivery Bi-pap BiPAP/CPAP BiPAP/CPAP BiPAP/CPAP 10/30/16 10/30/16 10/30/16 10/30/16 22:00 22:15 23:00 23:59 Temp 98.0 98.0 Pulse 78 76 Resp 25 B/P 152/78 150/74 Pulse Ox 97 97 97 O2 Delivery BiPAP/CPAP BiPAP/CPAP BiPAP/CPAP Bi-pap 10/31/16 10/31/16 10/31/16 10/31/16 00:00 00:26 01:00 02:00 Pulse 79 82 84 Resp B/P 155/75 166/86 161/85 Pulse Ox 97 97 97 100 O2 Delivery BiPAP/CPAP BiPAP/CPAP BiPAP/CPAP BiPAP/CPAP 10/31/16 10/31/16 10/31/16 10/31/16 02:17 02:47 03:00 03:16 Temp 97.7 97.7 Pulse 84 Resp B/P 170/84 Pulse Ox 98 100 99 97 O2 Delivery BiPAP/CPAP BiPAP/CPAP 10/31/16 10/31/16 10/31/16 10/31/16 04:00 04:00 05:00 05:00 Temp 97.7 97.7 Pulse 85 87 Resp 29 B/P 179/91 136/81 Pulse Ox 100 99 99 O2 Delivery BiPAP/CPAP Bi-pap BiPAP/CPAP BiPAP/CPAP O2 Flow Rate 5.0 10/31/16 10/31/16 10/31/16 10/31/16 05:10 06:00 07:00 07:37 Pulse 92 87 Resp 24 B/P 134/70 159/75 Pulse Ox 96 96 98 99 O2 Delivery BiPAP/CPAP BiPAP/CPAP BiPAP/CPAP BiPAP/CPAP 10/31/16 10/31/16 10/31/16 08:00 08:00 08:51 Temp 97.7 97.7 Pulse 86 Resp 25 B/P 151/66 Pulse Ox 95 94 O2 Delivery Bi-pap BiPAP/CPAP BiPAP/CPAP Intake and Output 10/30/16 10/30/16 10/31/16 15:00 23:00 07:00 Intake Total 100 ml Output Total 2900 ml 1155 ml Balance 100 ml -2900 ml -1155 ml VIVIENNE ALMANZA MD Oct 31, 2016 10:15
--- NOTE | 2016-10-31 10:18 | RAD ---
Indication chronic respiratory failure. History of COPD. Hypertension. Atrial fibrillation. Axial images through the chest were obtained. No IV contrast was administered. Note is made of a previous examination 05/28/2016. The study is slightly degraded by patient motion and inability to move the arms out of the [id number] Imaging through the upper abdomen shows no acute finding. Clips are seen in the gallbladder fossa. Significant hilar or mediastinal adenopathy is not seen. . A dominant soft tissue mass is not seen. There are scattered areas of volume loss in both lungs. This is most pronounced in the right upper lobe. Findings may reflect atelectasis or pneumonia. There is a trace amount right pleural fluid. Cardiomegaly is unchanged. IMPRESSION: Scattered areas of volume loss in both lungs is nonspecific. Findings may reflect atelectasis or pneumonia Trace amount of right pleural fluid PQRS Compliance Statement: One or more of the following individualized dose reduction techniques were utilized for this examination: 1. Automated exposure control 2. Adjustment of the mA and/or kV according to patient size 3. Use of iterative reconstruction technique
--- NOTE | 2016-10-31 10:25 | PDOC ---
Provider Note Provider Note [id number] acute on chronic resp fail abnl cxr copd w ae acute bronchitis acute diastolic chf bipap prn during day, cont at night, see orders. SONIDO OROPEZA MD Oct 31, 2016 10:25
[2016-10-31] MEDS: HYDROCODONE/APAP 5/325MG TABLET. PO PRN ×3 (10:54→20:27)
[2016-10-31] MEDS: FUROSEMIDE 40 MG/4 ML VIAL IVP SCH (10:54)
--- NOTE | 2016-10-31 10:58 | CONS ---
DATE OF CONSULTATION: 10/31/2016 I was asked to see this 60-year-old lady for acute on chronic respiratory failure. HISTORY OF PRESENT ILLNESS: She has a history of smoking and cocaine abuse. She quit last year. She is on 2 liters of oxygen continuously. She lives in a [facility]. She is diagnosed with sleep apnea, but is not on CPAP. She was admitted with increased shortness of breath, cough, and nasal congestion. She was placed on BiPAP overnight. This morning, I removed the BiPAP. She is currently on 2 liters of oxygen. She has cough with small amount of sputum production. She has shortness of breath, which has improved. She has nasal congestion. She denies pain. PAST MEDICAL HISTORY: AFib, hypertension, hyperlipidemia, COPD, chronic respiratory failure, bipolar disorder, anxiety, depression. SOCIAL HISTORY: Positive for smoking and cocaine abuse. FAMILY HISTORY: Positive for hypertension. MEDICATIONS: Currently she is on Lasix 40 mg IV daily, insulin, Protonix, Synthroid, Lovenox. BuSpar, Celexa, Wellbutrin, Lipitor, Pulmicort, DuoNeb, Solu-Medrol, and Levaquin. REVIEW OF SYSTEMS: As mentioned as above, other systems otherwise negative. PHYSICAL EXAMINATION: GENERAL: This is an obese lady. VITAL SIGNS: Her O2 saturation on 2 liters of oxygen is 94%, respiratory rate 22, heart rate 86, blood pressure 115/66, temperature 97.7. HEENT: Normocephalic, atraumatic. Pupils equal, round, reactive to light. Throat is clear. NECK: There is shallow oropharynx. Nose is clear. NECK: There is no JVD, lymphadenopathy or thyromegaly. CARDIOVASCULAR: Regular rate and rhythm. PMI is not displaced. CHEST: Chest expansion is normal. LUNGS: There are bibasilar crackles, no wheezing. ABDOMEN: Soft and obese. Bowel sounds are good. There is no mass. EXTREMITIES: There is lower extremity edema. LYMPHATICS: There is no lymphadenopathy. NEUROLOGIC: Alert and oriented. SKIN: Chronic changes. LABORATORY DATA: I reviewed the following lab data: Chest x-ray shows bilateral infiltrates. Influenza A and B negative. Urine drug screen is positive for opioid. Sodium 144, potassium 3.7, chloride 100, CO2 40, glucose 119, BUN 8, creatinine 0.8. WBC 9, hemoglobin 9.9, platelets 193. troponin less than 0.01. IMPRESSION: 1. Acute on chronic respiratory failure, multifactorial in etiology. 2. Abnormal chest x-ray. 3. Acute diastolic congestive heart failure. 4. Acute exacerbation of chronic obstructive pulmonary disease. 5. Acute bronchitis versus pneumonia. 6. Ex-smoker. 7. Obstructive sleep apnea-hypopnea syndrome. 8. Diabetes mellitus. 9. Hypertension. 10. Anxiety. PLAN AND RECOMMENDATIONS: 1. Titrate FiO2 to keep O2 saturation 92%. 2. Bronchodilator. 3. Inhaled corticosteroid. 4. Use BiPAP p.r.n. during day and continuously at night. BiPAP setting was reviewed. 5. She would require a sleep study as an outpatient. 6. She would benefit from treatment of obstructive sleep apnea-hypopnea syndrome. 7. Continue antibiotic. 8. I will change Solu-Medrol to 40 mg IV every 12 hours. 9. Lovenox. She is on that for paroxysmal atrial fibrillation. 10. Protonix for stress ulcer prophylaxis. 11. Lose weight. 12. The findings and recommendations were discussed with the patient, RN and RT and attending physician. Thank you very much for allowing me to participate in care of this very nice lady. SONIDO OROPEZA M.D. : TYRELL/reggie JOB#: [id number] / [id number] AP
[2016-10-31 12:44] LABS: PCO2 ABG 52 mmHg (35-46); PH ABG 7.47 (7.35-7.45); PO2 ABG 58 mmHg (65-108)
[2016-10-31 12:45] LABS: FIO2 ABG 28%; HCO3 ABG 37 mmol/L (21-28); SAT O2 ABG 91 % (92-99)
--- NOTE | 2016-10-31 13:48 | CARD ---
APPROVED REPORT EXAM: Two-dimensional and M-mode echocardiogram with Doppler and color Doppler. Other Information Quality : Good INDICATION Dyspnea 2D DIMENSIONS Left Atrium(2D)2.6 (1.6-4.0cm)IVSd1.3 (0.7-1.1cm) Aortic Root(2D)2.9 (2.0-3.7cm)LVDd4.3 (3.9-5.9cm) LVOT Diameter1.8 (1.8-2.4cm)PWd1.3 (0.7-1.1cm) LVDs2.5 (2.5-4.0cm)FS (%) 30.0 % SV61.8 mlLVEF(%)60.0 (>50%) Aortic Valve AoV Peak Gen.201.7cm/sAoV VTI33.1cm AO Peak GR.16.3mmHgLVOT VTI 16.56cm AO Mean GR.9mmHg Mitral Valve MV E Ltiskwaa29.9cm/sMV DECEL [id number] MV A Ccueqwtb999.9cm/sE/A Ratio0.8 TDI Lateral E' P. V7.98cm/sMedial E' P. V6.24cm/s E/Lateral E'12.0E/Medial E'15.4 Tricuspid Valve TR P. Kcmamgpr400dn/sRAP [id number] TR Peak Gr.69gvRbMHYA01jnZl Pulmonary Vein S1 Ulhgillb45.5cm/sS2 Ytleregc31.48cm/s D2 Rvxauzuu99.5cm/s LEFT VENTRICLE The left ventricle is normal size. There is mild concentric left ventricular hypertrophy. The left ve ntricular systolic function is normal and the ejection fraction is within normal range. The Ejection Fraction is 60-65%. There is normal LV segmental wall motion. Transmitral Doppler flow pattern is Gra de I-abnormal relaxation pattern. RIGHT VENTRICLE The right ventricle is normal size. The right ventricular systolic function is normal. ATRIA The left atrium size is normal. The right atrium size is normal. The interatrial septum is intact wit h no evidence for an atrial septal defect or patent foramen ovale as noted on 2-D or Doppler imaging. AORTIC VALVE The aortic valve is calcified but opens well. Doppler and Color Flow revealed no significant aortic r egurgitation. There is no significant aortic valvular stenosis. MITRAL VALVE The mitral valve is normal in structure and function. There is no evidence of mitral valve prolapse. There is no mitral valve stenosis. Doppler and Color Flow revealed no mitral valve regurgitation note d. TRICUSPID VALVE The tricuspid valve is normal in structure and function. Doppler and Color Flow revealed trace to mil d tricuspid regurgitation. There is moderate pulmonary hypertension. The PA pressure was estimated at 54 mmHg. There is no tricuspid valve stenosis. PULMONIC VALVE Doppler and Color Flow revealed no pulmonic valvular regurgitation. There is no pulmonic valvular margo nosis. GREAT VESSELS The aortic root is normal in size. The ascending aorta is not well seen. The IVC is normal in size an d collapses >50% with inspiration. PERICARDIAL EFFUSION There is no evidence of significant pericardial effusion. A pericardial fat pad is visualized. Critical Notification Critical Value: No <Conclusion> The left ventricular systolic function is normal and the ejection fraction is within normal range. Th e Ejection Fraction is 60-65%. There is normal LV segmental wall motion. Transmitral Doppler flow pattern is Grade I-abnormal relaxation pattern. Doppler and Color Flow revealed trace to mild tricuspid regurgitation. There is moderate pulmonary hy pertension. The PA pressure was estimated at 54 mmHg.
[2016-10-31] MEDS: ENOXAPARIN ** NOTE DOSE ** SYRINGE SQ SCH (20:02)
[2016-10-31] MEDS: CITALOPRAM 20 MG TABLET. PO SCH ×2 (20:28→21:00)
[2016-10-31] MEDS: ATORVASTATIN CALCIUM 40 MG TABLET. PO SCH (21:00)
[2016-10-31] MEDS ORDERED: DO NOT USE 40 MG/0.4 ML DISP.SYRIN SQ SCH (21:00)
[2016-10-31] MEDS: methylPREDNISolone SOD SUCC PF 40 MG/ML VIAL. IV SCH (21:00)
--- NOTE | 2016-10-31 23:19 | EKG ---
[facility] [address] [place] [address] Test Date: 2016-10-31 Test Time: 22:12:32 Pat Name: REYES PORTILLO Department: Room: 646 1 Gender: F Tunneller: JOSEPH : 1955 Requested By: BRUNA WILLIAMSON Order Number: [id number] Reading MD: Becca Harrison Measurements Intervals Odon Rate: 87 P: 59 MI: 182 QRS: -28 QRSD: 90 T: -42 QT: 422 QTc: 508 Interpretive Statements SINUS RHYTHM LEFTWARD AXIS PROLONGED QT Electronically Signed On 11-01-2016 19:52:28 CDT by Becca Harrison
[2016-11-01] MEDS: HYDROCODONE/APAP 5/325MG TABLET. PO PRN ×5 (01:22→20:19)
[2016-11-01 02:46] VITALS: BP 129/74
[2016-11-01] MEDS: LEVOTHYROXINE 25 MCG TABLET. PO SCH (07:00)
[2016-11-01] MEDS: BUDESONIDE 0.5 MG/2 ML NEBU. NEB SCH ×2 (07:07→18:59)
[2016-11-01] MEDS: IPRATRPIUM/ALBUTEROL 0.5/2.5MG 3 ML NEBU. NEB SCH ×5 (07:08→18:59)
[2016-11-01 07:33] VITALS: BP 134/76
[2016-11-01] MEDS: INSULIN ASPART 300 UNITS/3 ML INSULN.PEN SQ SCH ×6 (08:00→15:02)
[2016-11-01] MEDS: LISINOPRIL 10 MG TABLET PO SCH (08:05)
[2016-11-01] MEDS: buPROPion SR 150 MG TABLET.SA PO SCH ×2 (08:05→20:19)
[2016-11-01] MEDS: METOPROLOL SUCC 24HR ER 25 MG TAB.ER.24H. PO SCH (08:05)
[2016-11-01] MEDS: busPIRone 5 MG TABLET. PO SCH ×2 (08:06→20:19)
[2016-11-01] MEDS: PANTOPRAZOLE 40 MG TABLET. PO SCH (08:06)
[2016-11-01] MEDS: ENOXAPARIN ** NOTE DOSE ** SYRINGE SQ SCH ×3 (08:07→20:20)
[2016-11-01] MEDS: FUROSEMIDE 40 MG/4 ML VIAL IVP SCH ×2 (08:08→08:15)
[2016-11-01] MEDS: methylPREDNISolone SOD SUCC PF 40 MG/ML VIAL. IV SCH ×2 (08:08→08:15)
[2016-11-01 11:01] VITALS: BP 133/71
--- NOTE | 2016-11-01 11:16 | PDOC ---
PULMONARY PROGRESS NOTES Subjective no soa Vitals Vital Signs Date Time Temp Pulse Resp B/P Pulse Ox O2 Delivery O2 Flow Rate FiO2 11/01/16 11:01 99.1 84 26 133/71 95 BiPAP/CPAP 99.1 11/01/16 09:06 2.0 General: Alert, Oriented X4, No acute distress Lungs: Clear Cardiovascular: S1, S2 Abdomen: Soft, Non-tender, Other (obese) Extremities: No Edema, Other Skin: Warm Labs Laboratory Tests Test 10/30/16 13:07 10/30/16 13:35 10/30/16 13:42 10/30/16 13:44 O2 Saturation 86% (92-99) Arterial Blood pH 7.25 (7.35-7.45) Arterial Blood pCO2 at Patient Temp 95mmHg (35-46) Arterial Blood pO2 at Patient Temp 61mmHg (65-108) Arterial Blood HCO3 41mmol/L (21-28) Arterial Blood Base Excess 11mmol/L (-3-3) Oxyhemoglobin 85.4% Methemoglobin 0.3% (0.0-1.9) Carbon Monoxide, Quantitative 0.5% (0.0-1.9) FiO2 36 White Blood Count 9.3x10^3/uL (4.0-11.0) Red Blood Count 3.45x10^6/uL (3.50-5.40) Hemoglobin 10.0g/dL (12.0-15.5) Hematocrit 32.6% (36.0-47.0) Mean Corpuscular Volume 94fL (79-100) Mean Corpuscular Hemoglobin 29pg (25-35) Mean Corpuscular Hemoglobin Concent 31g/dL (31-37) Red Cell Distribution Width 15.2% (11.5-14.5) Platelet Count 214x10^3/uL (140-400) Neutrophils (%) (Auto) 66% (31-73) Lymphocytes (%) (Auto) 19% (24-48) Monocytes (%) (Auto) 10% (0-9) Eosinophils (%) (Auto) 5% (0-3) Basophils (%) (Auto) 1% (0-3) Neutrophils # (Auto) 6.1x10^3uL (1.8-7.7) Lymphocytes # (Auto) 1.7x10^3/uL (1.0-4.8) Monocytes # (Auto) 0.9x10^3/uL (0.0-1.1) Eosinophils # (Auto) 0.5x10^3/uL (0.0-0.7) Basophils # (Auto) 0.1x10^3/uL (0.0-0.2) Segmented Neutrophils % 65% (35-66) Lymphocytes % 21% (24-48) Atypical Lymphocytes % (Manual) 1% (0-0) Monocytes % 8% (0-10) Eosinophils % 1% (0-5) Basophils % 2% (0-3) Metamyelocytes % 1% (0-0) Myelocytes % 1% (0-0) Platelet Estimate Adequate (ADEQUATE) Giant Platelets Few Polychromasia Present Basophilic Stippling Present Anisocytosis Slight Stomatocytes Mod Sodium Level 144mmol/L (136-145) Potassium Level 3.9mmol/L (3.5-5.1) Chloride Level 101mmol/L (98-107) Carbon Dioxide Level 38mmol/L (21-32) Anion Gap 5 (6-14) Blood Urea Nitrogen 9mg/dL (7-20) Creatinine 0.9mg/dL (0.6-1.0) Estimated GFR (Cockcroft-Gault) 77.3 Glucose Level 103mg/dL (70-99) Lactic Acid Level 0.7mmol/L (0.4-2.0) Calcium Level 8.8mg/dL (8.5-10.1) Troponin I Quantitative < 0.017ng/mL (0.000-0.055) PO-Qgj-Q-Type Natriuretic Peptide 2021pg/mL (0-124) Urine Collection Type Unknown Urine Color Yellow Urine Clarity Clear Urine pH 6.0 Urine Specific [place] 1.025 Urine Protein Negativemg/dL (NEG-TRACE) Urine Glucose (UA) Negativemg/dL (NEG) Urine Ketones (Stick) Negativemg/dL (NEG) Urine Blood Negative (NEG) Urine Nitrite Negative (NEG) Urine Bilirubin Small (NEG) Urine Urobilinogen Dipstick 0.2mg/dL (0.2 mg/dL) Urine Leukocyte Esterase Small (NEG) Urine RBC 3-5/HPF (0-2) Urine WBC 11-20/HPF (0-4) Urine Squamous Epithelial Cells Mod/LPF Urine Bacteria 0/HPF (0-FEW) Urine Hyaline Casts Many/HPF Urine Mucus Mod/LPF Influenza Type A Antigen Negative (NEGATIVE) Influenza Type B Antigen Negative (NEGATIVE) Test 10/30/16 18:50 10/30/16 21:05 10/31/16 04:45 10/31/16 10:20 Urine Opiates Screen Pos (NEG) Urine Methadone Screen Neg (NEG) Urine Barbiturates Neg (NEG) Urine Phencyclidine Screen Neg (NEG) Urine Amphetamine/Methamphetamine Neg (NEG) Urine Benzodiazepines Screen Neg (NEG) Urine Cocaine Screen Neg (NEG) Urine Cannabinoids Screen Neg (NEG) Urine Ethyl Alcohol Neg (NEG) Glucose (Fingerstick) 117mg/dL (70-99) White Blood Count 9.0x10^3/uL (4.0-11.0) Red Blood Count 3.42x10^6/uL (3.50-5.40) Hemoglobin 9.9g/dL (12.0-15.5) Hematocrit 31.7% (36.0-47.0) Mean Corpuscular Volume 93fL (79-100) Mean Corpuscular Hemoglobin 29pg (25-35) Mean Corpuscular Hemoglobin Concent 31g/dL (31-37) Red Cell Distribution Width 14.6% (11.5-14.5) Platelet Count 193x10^3/uL (140-400) Neutrophils (%) (Auto) 91% (31-73) Lymphocytes (%) (Auto) 8% (24-48) Monocytes (%) (Auto) 1% (0-9) Eosinophils (%) (Auto) 0% (0-3) Basophils (%) (Auto) 0% (0-3) Neutrophils # (Auto) 8.2x10^3uL (1.8-7.7) Lymphocytes # (Auto) 0.7x10^3/uL (1.0-4.8) Monocytes # (Auto) 0.1x10^3/uL (0.0-1.1) Eosinophils # (Auto) 0.0x10^3/uL (0.0-0.7) Basophils # (Auto) 0.0x10^3/uL (0.0-0.2) Segmented Neutrophils % 83% (35-66) Band Neutrophils % 5% (0-9) Lymphocytes % 10% (24-48) Monocytes % 1% (0-10) Metamyelocytes % 1% (0-0) Platelet Estimate Adequate (ADEQUATE) Sodium Level 144mmol/L (136-145) Potassium Level 3.7mmol/L (3.5-5.1) Chloride Level 100mmol/L (98-107) Carbon Dioxide Level 40mmol/L (21-32) Anion Gap 4 (6-14) Blood Urea Nitrogen 8mg/dL (7-20) Creatinine 0.8mg/dL (0.6-1.0) Estimated GFR (Cockcroft-Gault) 88.5 Glucose Level 119mg/dL (70-99) Calcium Level 8.9mg/dL (8.5-10.1) Nasal Screen MRSA (PCR) Negative (Negative) Test 10/31/16 10:37 10/31/16 12:01 10/31/16 23:15 O2 Saturation 91% (92-99) Arterial Blood pH 7.47 (7.35-7.45) Arterial Blood pCO2 at Patient Temp 52mmHg (35-46) Arterial Blood pO2 at Patient Temp 58mmHg (65-108) Arterial Blood HCO3 37mmol/L (21-28) Arterial Blood Base Excess 12mmol/L (-3-3) FiO2 28% Glucose (Fingerstick) 123mg/dL (70-99) Troponin I Quantitative < 0.017ng/mL (0.000-0.055) Laboratory Tests Test 10/31/16 12:01 10/31/16 23:15 Glucose (Fingerstick) 123mg/dL (70-99) Troponin I Quantitative < 0.017ng/mL (0.000-0.055) Medications Active Scripts Medications Dose Route/Sig Days Date Category Dose Instructions Tramadol Hcl 50 Mg Tablet 50 Mg PO 1X 06/26/15 Reported Wellbutrin (Bupropion Hcl) 75 Mg Tablet Unknown Dose PO BID 06/26/15 Reported Trazodone Hcl 50 Mg Tablet Unknown Dose PO QHS 06/26/15 Reported Mucinex (Guaifenesin) 600 Mg Tablet.er 1 Tab PO BID 05/31/15 Rx Bactrim Ds Tablet (Sulfamethoxazole/Trimethoprim) 1 Each Tablet 1 Tab PO BID 05/31/15 Rx Promethazine-Dm Syrup (D-Methorphan Hb/Prometh Hcl) 118 Ml Syrup 5 Ml PO PRN Q6HRS PRN 11/04/14 Rx Prednisone 50 Mg Tablet 1 Tab PO DAILY 11/04/14 Rx Tessalon Perle (Benzonatate) 100 Mg Capsule 1 Cap PO TID 10/09/14 Rx Atorvastatin Calcium 40 Mg Tablet 1 Tab PO DAILY PRN 10/06/14 Rx Lisinopril 10 Mg Tablet 10 Mg PO DAILY 09/10/14 Reported LAST DOSE GIVEN: DATE: TIME: NEXT DOSE DUE: DATE: TIME: Tolterodine Tartrate 2 Mg Tablet 4 Mg PO DAILY 09/10/14 Reported Nystop (Nystatin) 1 Amy Amy 1 Amy TP BID 09/04/14 Rx Diphenhydramine Hcl 25 Mg Tablet 25 Mg PO Q6HRS PRN 0 09/03/14 Reported LAST DOSE; NEXT DOSE; IF NEEDED Advair 250-50 Diskus (Fluticasone/Salmeterol) 1 Each Disk.w.dev 1 Puff IH BID 04/05/14 Reported LAST DOSE; TODAY AM NEXT DOSE; TODAY PM Proair Hfa Inhaler (Albuterol Sulfate) 8.5 Gm Hfa.aer.ad 8.5 Gm IH PRN Q2HR PRN 08/10/13 Reported LAST DOSE; this morning NEXT DOSE; TODAY AT IF NEEDED Naprosyn (Naproxen) 500 Mg Tablet 500 Mg PO BID PRN 07/27/16 Rx Breo Ellipta 100-25 Mcg Inh (Fluticasone/Vilanterol) 1 Each Aer.pow.ba 1 Each IH DAILY 11/29/15 Reported Albuterol Sulfate Neb Soln (Albuterol Sulfate) 2.5 Mg/3 Ml Vial.neb 1 Vial NEB PRN Q6HRS PRN 11/29/15 Reported Hydrocodone-Apap 5-325 (Hydrocodone Bit/Acetaminophen) 1 Each Tablet 1 Tab PO PRN Q4HRS PRN 11/29/15 Reported Acetaminophen 325 Mg Tablet 650 Mg PO PRN Q6HRS PRN 11/29/15 Reported Imodium Multi-Symptom Rel Cplt (Loperamide Hcl/Simethicone) 1 Each Tablet 1 Each PO PRN Q6HRS PRN 11/29/15 Reported Seroquel (Quetiapine Fumarate) 25 Mg Tablet 25 Mg PO BID 11/29/15 Reported Omeprazole 20 Mg Capsule.dr 1 Cap PO DAILY 11/29/15 Reported Buspirone Hcl 15 Mg Tablet 1 Tab PO BID 10/14/15 Reported Atorvastatin Calcium 40 Mg Tablet 1 Tab PO HS 07/13/14 Reported Lisinopril 10 Mg Tablet 1 Tab PO DAILY 07/13/14 Reported Bupropion Hcl Sr (Bupropion Hcl) 150 Mg Tablet.er 1 Tab PO BID 07/13/14 Reported Levothyroxine Sodium 25 Mcg Tablet 25 Mcg PO DAILY 09/22/13 Reported Metoprolol Succinate ( Xl ) (Metoprolol Succinate) 25 Mg Tab.er.24h 25 Mg PO DAILY 08/06/13 Reported Celexa (Citalopram Hydrobromide) 20 Mg Tablet 20 Mg PO QHS 08/06/13 Reported Klonopin (Clonazepam) 0.5 Mg Tablet 0.5 Mg PO DAILY 07/23/13 Reported Impression . 1. Acute on chronic respiratory failure, multifactorial in etiology. 2. Abnormal chest x-ray, atelectasis vs pneumonia 3. Acute diastolic congestive heart failure. 4. Acute exacerbation of chronic obstructive pulmonary disease. 5. Acute bronchitis versus pneumonia. 6. Ex-smoker. 7. Obstructive sleep apnea-hypopnea syndrome. 8. Diabetes mellitus. 9. Hypertension. 10. Anxiety. Plan . 1. Titrate FiO2 to keep O2 saturation 92%. 2. Bronchodilator. 3. Inhaled corticosteroid. 4. Use BiPAP p.r.n. during day and continuously at night. BiPAP setting was reviewed. 5. She would require a sleep study as an outpatient. 6. She would benefit from treatment of obstructive sleep apnea-hypopnea syndrome. 7. Continue antibiotic. 8. Solu-Medrol 9. Lovenox. She is on that for paroxysmal atrial fibrillation. 10. Protonix for stress ulcer prophylaxis. 11. Lose weight. SISI ALBA MD Nov 01, 2016 11:16
--- NOTE | 2016-11-01 11:33 | PDOC ---
CARDIO Progress Notes Date and Time Date of Service 11/01/2016 Time of Evaluation 1120 Subjective Subjective: No Chest Pain, No Palpitations, No Dizziness, Other (mildly SOA when having conversastion) Vitals Vitals Vital Signs Date Time Temp Pulse Resp B/P Pulse Ox O2 Delivery O2 Flow Rate FiO2 11/01/16 11:01 99.1 84 26 133/71 95 BiPAP/CPAP 99.1 11/01/16 09:06 2.0 Weight Weight [ ] Input and Output Intake and Output Intake and Output 11/01/16 07:00 Intake Total 1395 ml Output Total 3335 ml Balance -1940 ml Intake Oral 1395 ml Output Urine Total 3335 ml # Bowel Movements 1 Laboratory Labs Laboratory Tests Test 10/31/16 12:01 10/31/16 23:15 Glucose (Fingerstick) 123mg/dL (70-99) Troponin I Quantitative < 0.017ng/mL (0.000-0.055) Microbiology Micro Microbiology 10/30/16 Blood Culture - Preliminary, Resulted NO GROWTH AFTER 1 DAY 10/30/16 Urine Culture - Preliminary, Resulted 10/30/16 Urine Culture Result 1 (MATIAS) - Preliminary, Resulted Physical Exam HEENT: Neck Supple W Full Motion Chest: Symmetric LUNGS: Other (basilar crackles) Heart: S1S2, RRR (SR with no significant ectopies overnight) Abdomen: Soft N/T, Other (obese) Extremities: No Calf Tenderness, Other (1+ bilateral LE pitting edema) Neurology: alert, oriented, follow commands, other ([facility]) Assessment Assessment 1. Acute on chronic diastolic CHF: TTE with normal EF and LV systolic function. Appears better/good UOP 2. Acute respiratory failure with associated NANCY/COPD//mod PHTN and possible pneumonia 3. PAFIB: no OAC/NOAC at home per pt. Currently SR 4. HTN: controlled 5. Morbid obesity: BMI 53 6. Hx of polysubstance abuse: positive for opioid but no other recreational drugs present 7. Hypoxic/Metabolic encephalopathy: resolved 8. Noncompliance: not cooperative with treatments. Refused several meds today including lasix. Recommendations 1. Refused start on OAC/NOAC but has agreed with ASA and will start on ECASA at 325 mg daily for stroke prevention 2. Discussed treatment plan but told me could not guarantee she will take it. 3. Continue with secondary prevention and diuretic therapy and toprol XL. 4. Currently off bipap on NC. Follow pulmonary recommendations. SHANKAR ARAGON APRN Nov 01, 2016 11:33
[2016-11-01] MEDS: GUAIFENESIN ER 600 MG TABLET.ER PO SCH ×2 (12:08→20:19)
[2016-11-01] MEDS: ASPIRIN ENTERIC COATED 325 MG TABLET.DR. PO SCH (12:08)
--- NOTE | 2016-11-01 12:32 | PDOC ---
PROGRESS NOTES Chief Complaint Chief Complaint Acute hypoxic, hypercapnic respir failure ASSESSMENT AND PLAN: 1. COPD exacerbation: improving. switch to PO prednisone in AM. nebs, suppl O2. levaquin 2. CHF exacerbation: diastolic; IV lasix for now. switch to PO at D/c 4. Hypoventilation syndrome 2/2 obesity: BiPAP at nite, PRN during day 4. Anxiety/ panic attacks: assoc with perceived SOB. reassurance, ativan PRN 5. DM2: borderline w/o meds, on steroids. ISS 6. HTN: well controlled on home regimen 7. HLD: on statin 8. Hypothyroidism: mini-dose synthroid. check TSH 9. Anemia: normocytic, normochromic. likely chronic inflammation (CHF) 10. Anxiety, personality disorder: continue home meds 11. Hx alcoholism 12. Hx drug abuse Vitals Vitals Vital Signs Date Time Temp Pulse Resp B/P Pulse Ox O2 Delivery O2 Flow Rate FiO2 11/01/16 11:48 18 Nasal Cannula 2.0 11/01/16 11:01 99.1 84 133/71 95 99.1 Physical Exam General: Alert, Cooperative, No acute distress Heart: Regular rate, Normal S1, Normal S2, No murmurs Lungs: Clear Abdomen: Normal bowel sounds, Soft, No tenderness Extremities: No clubbing, No edema Skin: No rashes Labs LABS Laboratory Tests Test 10/31/16 23:15 Troponin I Quantitative < 0.017ng/mL (0.000-0.055) Review of Systems Review of Systems tearful; feels abandoned by family, and "don't trust anybody" Comment Review of Relevant JOSUÉ LAZO MD Nov 01, 2016 12:32
[2016-11-01] MEDS: LORAZEPAM 0.5 MG TABLET. PO PRN ×2 (13:50→20:19)
[2016-11-01 15:19] VITALS: BP 134/78
[2016-11-01] MEDS ORDERED: ASA/APAP/CAFFEINE 250/250/65MG TABLET. PO PRN (17:15)
[2016-11-01 19:57] VITALS: BP 111/61
[2016-11-01] MEDS: ATORVASTATIN CALCIUM 40 MG TABLET. PO SCH (20:18)
[2016-11-01] MEDS: CITALOPRAM 20 MG TABLET. PO SCH (20:19)
[2016-11-01] MEDS ORDERED: methylPREDNISolone SOD SUCC PF 40 MG/ML VIAL. IV SCH (21:00)
[2016-11-01 23:00] VITALS: BP 141/75
[2016-11-02] MEDS: HYDROCODONE/APAP 5/325MG TABLET. PO PRN ×5 (00:34→20:30)
[2016-11-02 03:00] VITALS: BP 130/79
[2016-11-02] MEDS: LEVOTHYROXINE 25 MCG TABLET. PO SCH (05:27)
[2016-11-02] MEDS: PANTOPRAZOLE 40 MG TABLET. PO SCH (05:29)
[2016-11-02] MEDS: LORAZEPAM 0.5 MG TABLET. PO PRN ×3 (05:29→23:32)
[2016-11-02] MEDS: LEVOFLOXACIN 750 MG TABLET. PO SCH (05:29)
[2016-11-02 07:20] VITALS: BP 160/74
[2016-11-02] MEDS: INSULIN ASPART 300 UNITS/3 ML INSULN.PEN SQ SCH ×3 (07:22→15:43)
[2016-11-02] MEDS: IPRATRPIUM/ALBUTEROL 0.5/2.5MG 3 ML NEBU. NEB SCH ×4 (07:43→20:46)
[2016-11-02] MEDS: BUDESONIDE 0.5 MG/2 ML NEBU. NEB SCH ×2 (07:43→20:46)
[2016-11-02] MEDS: ASPIRIN ENTERIC COATED 325 MG TABLET.DR. PO SCH (08:00)
[2016-11-02] MEDS: ENOXAPARIN ** NOTE DOSE ** SYRINGE SQ SCH ×2 (08:27→20:30)
[2016-11-02] MEDS: FUROSEMIDE 40 MG/4 ML VIAL IVP SCH (08:27)
[2016-11-02] MEDS: PREDNISONE 20 MG TABLET PO SCH (08:28)
[2016-11-02] MEDS: buPROPion SR 150 MG TABLET.SA PO SCH ×2 (08:28→20:28)
[2016-11-02] MEDS: busPIRone 5 MG TABLET. PO SCH ×2 (08:28→20:37)
[2016-11-02] MEDS: METOPROLOL SUCC 24HR ER 25 MG TAB.ER.24H. PO SCH (08:28)
[2016-11-02] MEDS: GUAIFENESIN ER 600 MG TABLET.ER PO SCH ×2 (08:28→20:29)
[2016-11-02] MEDS: LISINOPRIL 10 MG TABLET PO SCH (08:29)
--- NOTE | 2016-11-02 09:01 | PDOC ---
PULMONARY PROGRESS NOTES Subjective no soa Vitals Vital Signs Date Time Temp Pulse Resp B/P Pulse Ox O2 Delivery O2 Flow Rate FiO2 11/02/16 08:29 77 160/74 11/02/16 08:00 Nasal Cannula 2.0 11/02/16 07:43 98 11/02/16 07:20 98.2 16 98.2 General: Alert, Oriented X4, No acute distress Lungs: Clear Cardiovascular: S1, S2 Abdomen: Soft, Non-tender, Other (obese) Extremities: No Edema, Other Skin: Warm Labs Laboratory Tests Test 10/31/16 10:20 10/31/16 10:37 10/31/16 12:01 10/31/16 23:15 Nasal Screen MRSA (PCR) Negative (Negative) O2 Saturation 91% (92-99) Arterial Blood pH 7.47 (7.35-7.45) Arterial Blood pCO2 at Patient Temp 52mmHg (35-46) Arterial Blood pO2 at Patient Temp 58mmHg (65-108) Arterial Blood HCO3 37mmol/L (21-28) Arterial Blood Base Excess 12mmol/L (-3-3) FiO2 28% Glucose (Fingerstick) 123mg/dL (70-99) Troponin I Quantitative < 0.017ng/mL (0.000-0.055) Medications Active Scripts Medications Dose Route/Sig Days Date Category Dose Instructions Tramadol Hcl 50 Mg Tablet 50 Mg PO 1X 06/26/15 Reported Wellbutrin (Bupropion Hcl) 75 Mg Tablet Unknown Dose PO BID 06/26/15 Reported Trazodone Hcl 50 Mg Tablet Unknown Dose PO QHS 06/26/15 Reported Mucinex (Guaifenesin) 600 Mg Tablet.er 1 Tab PO BID 05/31/15 Rx Bactrim Ds Tablet (Sulfamethoxazole/Trimethoprim) 1 Each Tablet 1 Tab PO BID 05/31/15 Rx Promethazine-Dm Syrup (D-Methorphan Hb/Prometh Hcl) 118 Ml Syrup 5 Ml PO PRN Q6HRS PRN 11/04/14 Rx Prednisone 50 Mg Tablet 1 Tab PO DAILY 11/04/14 Rx Tessalon Perle (Benzonatate) 100 Mg Capsule 1 Cap PO TID 10/09/14 Rx Atorvastatin Calcium 40 Mg Tablet 1 Tab PO DAILY PRN 10/06/14 Rx Lisinopril 10 Mg Tablet 10 Mg PO DAILY 09/10/14 Reported LAST DOSE GIVEN: DATE: TIME: NEXT DOSE DUE: DATE: TIME: Tolterodine Tartrate 2 Mg Tablet 4 Mg PO DAILY 09/10/14 Reported Nystop (Nystatin) 1 Amy Aym 1 Amy TP BID 09/04/14 Rx Diphenhydramine Hcl 25 Mg Tablet 25 Mg PO Q6HRS PRN 0 09/03/14 Reported LAST DOSE; NEXT DOSE; IF NEEDED Advair 250-50 Diskus (Fluticasone/Salmeterol) 1 Each Disk.w.dev 1 Puff IH BID 04/05/14 Reported LAST DOSE; TODAY AM NEXT DOSE; TODAY PM Proair Hfa Inhaler (Albuterol Sulfate) 8.5 Gm Hfa.aer.ad 8.5 Gm IH PRN Q2HR PRN 08/10/13 Reported LAST DOSE; this morning NEXT DOSE; TODAY AT IF NEEDED Naprosyn (Naproxen) 500 Mg Tablet 500 Mg PO BID PRN 07/27/16 Rx Breo Ellipta 100-25 Mcg Inh (Fluticasone/Vilanterol) 1 Each Aer.pow.ba 1 Each IH DAILY 11/29/15 Reported Albuterol Sulfate Neb Soln (Albuterol Sulfate) 2.5 Mg/3 Ml Vial.neb 1 Vial NEB PRN Q6HRS PRN 11/29/15 Reported Hydrocodone-Apap 5-325 (Hydrocodone Bit/Acetaminophen) 1 Each Tablet 1 Tab PO PRN Q4HRS PRN 11/29/15 Reported Acetaminophen 325 Mg Tablet 650 Mg PO PRN Q6HRS PRN 11/29/15 Reported Imodium Multi-Symptom Rel Cplt (Loperamide Hcl/Simethicone) 1 Each Tablet 1 Each PO PRN Q6HRS PRN 11/29/15 Reported Seroquel (Quetiapine Fumarate) 25 Mg Tablet 25 Mg PO BID 11/29/15 Reported Omeprazole 20 Mg Capsule.dr 1 Cap PO DAILY 11/29/15 Reported Buspirone Hcl 15 Mg Tablet 1 Tab PO BID 10/14/15 Reported Atorvastatin Calcium 40 Mg Tablet 1 Tab PO HS 07/13/14 Reported Lisinopril 10 Mg Tablet 1 Tab PO DAILY 07/13/14 Reported Bupropion Hcl Sr (Bupropion Hcl) 150 Mg Tablet.er 1 Tab PO BID 07/13/14 Reported Levothyroxine Sodium 25 Mcg Tablet 25 Mcg PO DAILY 09/22/13 Reported Metoprolol Succinate ( Xl ) (Metoprolol Succinate) 25 Mg Tab.er.24h 25 Mg PO DAILY 08/06/13 Reported Celexa (Citalopram Hydrobromide) 20 Mg Tablet 20 Mg PO QHS 08/06/13 Reported Klonopin (Clonazepam) 0.5 Mg Tablet 0.5 Mg PO DAILY 07/23/13 Reported Impression . 1. Acute on chronic respiratory failure, multifactorial in etiology. 2. Abnormal chest x-ray 3. Acute diastolic congestive heart failure. 4. Acute exacerbation of chronic obstructive pulmonary disease. 5. Acute bronchitis versus pneumonia. 6. Ex-smoker. 7. Obstructive sleep apnea-hypopnea syndrome. 8. Diabetes mellitus. 9. Hypertension. 10. Anxiety. Plan . resp status is compensated d/c planning in progress 1. Titrate FiO2 to keep O2 saturation 92%. 2. Bronchodilator. 3. Inhaled corticosteroid. 4. Use BiPAP p.r.n. during day 5. She would require a sleep study as an outpatient, difficult to set up pt is homeless 6. She would benefit from treatment of obstructive sleep apnea-hypopnea syndrome. 7. Continue antibiotic. 8. d/c steroids 9. Lovenox. She is on that for paroxysmal atrial fibrillation. 10. Protonix for stress ulcer prophylaxis. 11. Lose weight. CALIXTO BAEZ MD Nov 02, 2016 09:01
[2016-11-02 11:16] VITALS: BP 160/90
--- NOTE | 2016-11-02 11:30 | PDOC ---
PROGRESS NOTES Chief Complaint Chief Complaint Acute hypoxic, hypercapnic respir failure ASSESSMENT AND PLAN: 1. COPD exacerbation: improving. switch to PO prednisone. nebs, suppl O2. levaquin 2. CHF exacerbation: diastolic; IV lasix for now. switch to PO at D/c 4. Hypoventilation syndrome 2/2 obesity: BiPAP at nite, PRN during day 4. Anxiety/ panic attacks: assoc with perceived SOB. reassurance, ativan PRN. she seems to ge getting worse - ?GerJoe? 5. DM2: much improved with decreased steroids. ISS 6. HTN: well controlled on home regimen 7. HLD: on statin 8. Hypothyroidism: mini-dose synthroid. check TSH - pt declined lab draw today (x3) 9. Anemia: normocytic, normochromic. likely chronic inflammation (CHF) 10. Anxiety, personality disorder: continue home meds 11. Hx alcoholism 12. Hx drug abuse 13. Dispo: d/w SW: jermaine to reeval her psych regimen before returning to [place] Vitals Vitals Vital Signs Date Time Temp Pulse Resp B/P Pulse Ox O2 Delivery O2 Flow Rate FiO2 11/02/16 11:19 96 Nasal Cannula 2.0 11/02/16 11:19 18 11/02/16 11:16 97.7 76 160/90 97.7 Physical Exam General: Alert, Cooperative, No acute distress Heart: Regular rate, No murmurs Lungs: Clear Abdomen: Normal bowel sounds, Soft, No tenderness Extremities: No clubbing, No edema Skin: No rashes Review of Systems Review of Systems no breathing problems or chest pain today, angry about bed - want a new one: rails are 'not right'. angry about perceived unresponsiveness of staff. tearful about perceived abandonment by family JOSUÉ LAZO MD Nov 02, 2016 11:29
--- NOTE | 2016-11-02 11:49 | PDOC ---
SHANKAR ARAGON CONTACT LENS CUTTER 11/02/16 1149: CARDIO Progress Notes Date and Time Date of Service 11/02/2016 Time of Evaluation 1020 Subjective Subjective: No Chest Pain, No Palpitations, No Dizziness, Other (feels worried about family dynamics and out of hospital placement. Worried about not being taken back by her family; crying and thinking that her family does not want her that she has to prove herself despite proving she has been sober from "street drugs" since July) Vitals Vitals Vital Signs Date Time Temp Pulse Resp B/P Pulse Ox O2 Delivery O2 Flow Rate FiO2 11/02/16 11:19 96 Nasal Cannula 2.0 11/02/16 11:19 18 11/02/16 11:16 97.7 76 160/90 97.7 Weight Weight [ ] Input and Output Intake and Output Intake and Output 11/02/16 07:00 Intake Total 1380 ml Output Total 1900 ml Balance -520 ml Intake Oral 1380 ml Output Urine Total 1900 ml # Bowel Movements 3 Microbiology Micro Microbiology 10/30/16 Blood Culture - Preliminary, Resulted NO GROWTH AFTER 2 DAYS 10/30/16 Urine Culture - Final, Complete 10/30/16 Urine Culture Result 1 (MATIAS) - Final, Complete Physical Exam HEENT: Neck Supple W Full Motion Chest: Symmetric LUNGS: Other (diminished) Heart: S1S2, RRR (SR with no significant ectopies overnight) Abdomen: Soft N/T, Other (obese) Extremities: No Calf Tenderness, Other (1+ bilateral LE pitting edema) Neurology: alert, oriented, follow commands, other ([place]; displays anger, anxiety, very tearful) Assessment Assessment 1. Acute on chronic diastolic CHF: TTE with normal EF and LV systolic function. Appears compensated 2. Acute respiratory failure with associated NANCY/COPD//mod PHTN and possible pneumonia 3. PAFIB: no OAC/NOAC at home per pt. Currently SR 4. HTN: now labile, due to noncompliance 5. Morbid obesity: BMI 53 6. Hx of polysubstance abuse: positive for opioid but no other recreational drugs present. Been sober since 07/2016 7. Hypoxic/Metabolic encephalopathy: resolved 8. Noncompliance: not cooperative with treatments. Refused again several meds today including labs. 9. Depression/anxiety: tearful today, worried about family dynamics and OOH placement. Recommendations 1. Continue to refuse some routine medications. agreed with lasix today 2. On bupropion and celexa, will benefit from outpt psych counseling. 3. Continue with secondary prevention and diuretic therapy and toprol XL if pt complies 4. Currently off bipap on NC. Follow pulmonary recommendations. 5. No further cardiac recommendation at this time, will follow as needed. MARIE CARABALLO MD 11/02/16 1811: CARDIO Progress Notes Plan Plan Pt. seen and examined. Agree with above AMBULATORY SERVICE REPRESENTATIVE note. No acute events overnight. Patient has severe psychiatric issues. Chronic diastolic HF. Supportive care. Pls call with questions. SHANKAR ARAGON APRN Nov 02, 2016 11:49 MARIE CARABALLO MD Nov 02, 2016 18:11
[2016-11-02 15:12] VITALS: BP 139/83
[2016-11-02 19:00] VITALS: BP 133/70
[2016-11-02] MEDS: ATORVASTATIN CALCIUM 40 MG TABLET. PO SCH (20:29)
[2016-11-02] MEDS: CITALOPRAM 20 MG TABLET. PO SCH (20:29)
[2016-11-02 23:36] VITALS: BP 126/61
[2016-11-03 03:46] VITALS: BP 144/69
[2016-11-03] MEDS: PANTOPRAZOLE 40 MG TABLET. PO SCH (06:06)
[2016-11-03] MEDS: LEVOTHYROXINE 25 MCG TABLET. PO SCH (06:06)
[2016-11-03] MEDS: LEVOFLOXACIN 750 MG TABLET. PO SCH (06:06)
[2016-11-03] MEDS: IPRATRPIUM/ALBUTEROL 0.5/2.5MG 3 ML NEBU. NEB SCH ×3 (06:07→15:53)
[2016-11-03] MEDS: BUDESONIDE 0.5 MG/2 ML NEBU. NEB SCH (06:07)
[2016-11-03 07:00] VITALS: BP 161/79
[2016-11-03] MEDS: ASPIRIN ENTERIC COATED 325 MG TABLET.DR. PO SCH (08:00)
[2016-11-03] MEDS: INSULIN ASPART 300 UNITS/3 ML INSULN.PEN SQ SCH ×2 (08:00→12:00)
--- NOTE | 2016-11-03 08:48 | PDOC ---
PULMONARY PROGRESS NOTES Subjective no soa Vitals Vital Signs Date Time Temp Pulse Resp B/P Pulse Ox O2 Delivery O2 Flow Rate FiO2 11/03/16 07:00 98.4 81 18 161/79 94 Nasal Cannula 2.0 98.4 General: Alert, Oriented X4, No acute distress Lungs: Clear Cardiovascular: S1, S2 Abdomen: Soft, Non-tender, Other (obese) Extremities: No Edema, Other Skin: Warm Labs Laboratory Tests Test 11/02/16 20:27 Glucose (Fingerstick) 146mg/dL (70-99) Laboratory Tests Test 11/02/16 20:27 Glucose (Fingerstick) 146mg/dL (70-99) Medications Active Scripts Medications Dose Route/Sig Days Date Category Dose Instructions Tramadol Hcl 50 Mg Tablet 50 Mg PO 1X 06/26/15 Reported Wellbutrin (Bupropion Hcl) 75 Mg Tablet Unknown Dose PO BID 06/26/15 Reported Trazodone Hcl 50 Mg Tablet Unknown Dose PO QHS 06/26/15 Reported Mucinex (Guaifenesin) 600 Mg Tablet.er 1 Tab PO BID 05/31/15 Rx Bactrim Ds Tablet (Sulfamethoxazole/Trimethoprim) 1 Each Tablet 1 Tab PO BID 05/31/15 Rx Promethazine-Dm Syrup (D-Methorphan Hb/Prometh Hcl) 118 Ml Syrup 5 Ml PO PRN Q6HRS PRN 11/04/14 Rx Prednisone 50 Mg Tablet 1 Tab PO DAILY 11/04/14 Rx Tessalon Perle (Benzonatate) 100 Mg Capsule 1 Cap PO TID 10/09/14 Rx Atorvastatin Calcium 40 Mg Tablet 1 Tab PO DAILY PRN 10/06/14 Rx Lisinopril 10 Mg Tablet 10 Mg PO DAILY 09/10/14 Reported LAST DOSE GIVEN: DATE: TIME: NEXT DOSE DUE: DATE: TIME: Tolterodine Tartrate 2 Mg Tablet 4 Mg PO DAILY 09/10/14 Reported Nystop (Nystatin) 1 Amy Amy 1 Amy TP BID 09/04/14 Rx Diphenhydramine Hcl 25 Mg Tablet 25 Mg PO Q6HRS PRN 0 09/03/14 Reported LAST DOSE; NEXT DOSE; IF NEEDED Advair 250-50 Diskus (Fluticasone/Salmeterol) 1 Each Disk.w.dev 1 Puff IH BID 04/05/14 Reported LAST DOSE; TODAY AM NEXT DOSE; TODAY PM Proair Hfa Inhaler (Albuterol Sulfate) 8.5 Gm Hfa.aer.ad 8.5 Gm IH PRN Q2HR PRN 08/10/13 Reported LAST DOSE; this morning NEXT DOSE; TODAY AT IF NEEDED Naprosyn (Naproxen) 500 Mg Tablet 500 Mg PO BID PRN 07/27/16 Rx Breo Ellipta 100-25 Mcg Inh (Fluticasone/Vilanterol) 1 Each Aer.pow.ba 1 Each IH DAILY 11/29/15 Reported Albuterol Sulfate Neb Soln (Albuterol Sulfate) 2.5 Mg/3 Ml Vial.neb 1 Vial NEB PRN Q6HRS PRN 11/29/15 Reported Hydrocodone-Apap 5-325 (Hydrocodone Bit/Acetaminophen) 1 Each Tablet 1 Tab PO PRN Q4HRS PRN 11/29/15 Reported Acetaminophen 325 Mg Tablet 650 Mg PO PRN Q6HRS PRN 11/29/15 Reported Imodium Multi-Symptom Rel Cplt (Loperamide Hcl/Simethicone) 1 Each Tablet 1 Each PO PRN Q6HRS PRN 11/29/15 Reported Seroquel (Quetiapine Fumarate) 25 Mg Tablet 25 Mg PO BID 11/29/15 Reported Omeprazole 20 Mg Capsule.dr 1 Cap PO DAILY 11/29/15 Reported Buspirone Hcl 15 Mg Tablet 1 Tab PO BID 10/14/15 Reported Atorvastatin Calcium 40 Mg Tablet 1 Tab PO HS 07/13/14 Reported Lisinopril 10 Mg Tablet 1 Tab PO DAILY 07/13/14 Reported Bupropion Hcl Sr (Bupropion Hcl) 150 Mg Tablet.er 1 Tab PO BID 07/13/14 Reported Levothyroxine Sodium 25 Mcg Tablet 25 Mcg PO DAILY 09/22/13 Reported Metoprolol Succinate ( Xl ) (Metoprolol Succinate) 25 Mg Tab.er.24h 25 Mg PO DAILY 08/06/13 Reported Celexa (Citalopram Hydrobromide) 20 Mg Tablet 20 Mg PO QHS 08/06/13 Reported Klonopin (Clonazepam) 0.5 Mg Tablet 0.5 Mg PO DAILY 07/23/13 Reported Impression . 1. Acute on chronic respiratory failure, multifactorial in etiology. 2. Abnormal chest x-ray 3. Acute diastolic congestive heart failure. 4. Acute exacerbation of chronic obstructive pulmonary disease. 5. Acute bronchitis versus pneumonia. 6. Ex-smoker. 7. Obstructive sleep apnea-hypopnea syndrome. 8. Diabetes mellitus. 9. Hypertension. 10. Anxiety. Plan . 1. Titrate FiO2 to keep O2 saturation 92%. 2. Bronchodilator. 3. Inhaled corticosteroid. 4. Use BiPAP p.r.n. during day 5. She would require a sleep study as an outpatient, difficult to set up pt is homeless 6. She would benefit from treatment of obstructive sleep apnea-hypopnea syndrome. 7. Continue antibiotic. 8. d/c steroids 9. Lovenox. She is on that for paroxysmal atrial fibrillation. 10. Protonix for stress ulcer prophylaxis. 11. Lose weight. CALIXTO BAEZ MD Nov 03, 2016 08:48
[2016-11-03] MEDS: ENOXAPARIN ** NOTE DOSE ** SYRINGE SQ SCH (08:55)
[2016-11-03] MEDS: busPIRone 5 MG TABLET. PO SCH (08:57)
[2016-11-03] MEDS: buPROPion SR 150 MG TABLET.SA PO SCH (08:57)
[2016-11-03] MEDS: LISINOPRIL 10 MG TABLET PO SCH (08:57)
[2016-11-03] MEDS: GUAIFENESIN ER 600 MG TABLET.ER PO SCH (08:57)
[2016-11-03] MEDS: PREDNISONE 20 MG TABLET PO SCH (08:57)
[2016-11-03] MEDS: METOPROLOL SUCC 24HR ER 25 MG TAB.ER.24H. PO SCH (08:58)
[2016-11-03] MEDS: FUROSEMIDE 40 MG/4 ML VIAL IVP SCH (08:58)
[2016-11-03] MEDS: HYDROCODONE/APAP 5/325MG TABLET. PO PRN ×2 (09:16→15:45)
[2016-11-03 10:46] VITALS: BP 130/75
--- NOTE | 2016-11-03 12:07 | PDOC ---
PROGRESS NOTES Chief Complaint Chief Complaint Acute hypoxic, hypercapnic respir failure ASSESSMENT AND PLAN: 1. COPD exacerbation: improving. prednisone taper. nebs, suppl O2. stop levaquin 2. CHF exacerbation: diastolic; IV lasix for now. switch to PO at D/c 4. Hypoventilation syndrome 2/2 obesity: BiPAP at nite, PRN during day 4. Anxiety/ panic attacks: assoc with perceived SOB. reassurance, ativan PRN. 5. DM2: much improved with decreased steroids. ISS 6. HTN: well controlled on home regimen 7. HLD: on statin 8. Hypothyroidism: mini-dose synthroid. check TSH - pt declined lab draw 9. Anemia: normocytic, normochromic. likely chronic inflammation (CHF) 10. Anxiety, personality disorder: continue home meds 11. Hx alcoholism 12. Hx drug abuse 13. Dispo: back to [place] Vitals Vitals Vital Signs Date Time Temp Pulse Resp B/P Pulse Ox O2 Delivery O2 Flow Rate FiO2 11/03/16 10:46 98.2 73 18 130/75 97 Nasal Cannula 2.0 98.2 Physical Exam General: Alert, Cooperative, No acute distress Heart: Regular rate, No murmurs Lungs: Clear Abdomen: Normal bowel sounds, Soft, No tenderness Extremities: No clubbing, No edema Skin: No rashes Labs LABS Laboratory Tests Test 11/02/16 20:27 Glucose (Fingerstick) 146mg/dL (70-99) Review of Systems Review of Systems in better mood. appetite poor. JOSUÉ LAZO MD Nov 03, 2016 12:07
[2016-11-03] MEDS ORDERED: CLON0.5T PO (12:13)
[2016-11-03 15:00] VITALS: BP 149/80
--- NOTE | 2016-11-04 02:33 | DS ---
DATE OF DISCHARGE: 11/03/2016 CHIEF COMPLAINT: Acute respiratory failure. HOSPITAL COURSE: This patient is a 60-year-old obese woman with COPD, diastolic CHF, hypoventilation syndrome secondary to obesity who presented to the Emergency Room from her correction with acute hypoxic hypercapnic respiratory failure. She was treated for COPD with steroids, nebulizers, supplemental O2 as well as Levaquin. She received IV Lasix for CHF with good improvement of her symptoms. BiPAP was continued at night and p.r.n. during the day. The patient, however, had some panic attacks, during which she had a perceived ____. Reassurance and Ativan p.r.n. helped. All other chronic medical issues were essentially stable and she was continued on all her home medication including her psychiatric meds for anxiety/depression and personality disorder. PHYSICAL EXAMINATION: Please refer to note from same day. DISCHARGE DATE: 11/03/2016 DISCHARGE DISPOSITION: To SNF. DISCHARGE CONDITION: Improved. DISCHARGE DIAGNOSIS: Acute hypoxic and hypercapnic respiratory failure. DISCHARGE MEDICATIONS: Please refer to MAR. DISCHARGE INSTRUCTIONS: The patient will follow up with her PCP in 1 week. ASAD CLARK MD DR: ERNA/reggie JOB#: [id number] / [id number] IRAIS Matias MD
[2016-11-04] MEDS ORDERED: PREDNISONE 20 MG TABLET PO SCH (09:00)
--- NOTE | 2016-11-04 09:11 | DS ---
DATE OF DISCHARGE: 11/03/2016 CHIEF COMPLAINT: Acute respiratory failure. HOSPITAL COURSE: This patient is a 60-year-old obese woman with COPD, diastolic CHF, hypoventilation syndrome secondary to obesity who presented to the Emergency Room from her detention with acute hypoxic hypercapnic respiratory failure. She was treated for COPD with steroids, nebulizers, supplemental O2 as well as Levaquin. She received IV Lasix for CHF with good improvement of her symptoms. BiPAP was continued at night and p.r.n. during the day. The patient, however, had some panic attacks, during which she had a perceived ____. Reassurance and Ativan p.r.n. helped. All other chronic medical issues were essentially stable and she was continued on all her home medication including her psychiatric meds for anxiety/depression and personality disorder. PHYSICAL EXAMINATION: Please refer to note from same day. DISCHARGE DATE: 11/03/2016 DISCHARGE DISPOSITION: To SNF. DISCHARGE CONDITION: Improved. DISCHARGE DIAGNOSIS: Acute hypoxic and hypercapnic respiratory failure. DISCHARGE MEDICATIONS: Please refer to MAR. DISCHARGE INSTRUCTIONS: The patient will follow up with her PCP in 1 week. JOSUÉ LAZO MD DR: LC/nts JOB#: [id number] / [id number] IRAIS Matias MD
== END 2016-11-03 16:22 | DRG 208 ==
LOC: ER 12:49 → 1 WEST ICU 13:20 → 6 SOUTH 10-31 12:30
PROVIDERS: ADMIT Internal Medicine; ATTEND Internal Medicine
PROC: 5A09457 Assistance with Respiratory Ventilation, 24-96 Consecutive Hours, Continuous Positive Airway Pressure (ICD-10-PCS; principal; 2016-10-30)
PROC: 5A1935Z Respiratory Ventilation, Less than 24 Consecutive Hours (ICD-10-PCS; 2016-10-30)
DX: J96.21 Acute and chronic respiratory failure with hypoxia (principal); I50.33 Acute on chronic diastolic (congestive) heart failure; G93.41 Metabolic encephalopathy; J44.1 Chronic obstructive pulmonary disease with (acute) exacerbation; E66.2 Morbid (severe) obesity with alveolar hypoventilation; Z68.43 Body mass index [BMI] 50.0-59.9, adult; J44.0 Chronic obstructive pulmonary disease with (acute) lower respiratory infection; J96.22 Acute and chronic respiratory failure with hypercapnia; J20.9 Acute bronchitis, unspecified; D64.9 Anemia, unspecified; E03.9 Hypothyroidism, unspecified; E78.00 Pure hypercholesterolemia, unspecified; E78.5 Hyperlipidemia, unspecified; F14.10 Cocaine abuse, uncomplicated; F31.9 Bipolar disorder, unspecified; F41.0 Panic disorder [episodic paroxysmal anxiety]; G47.33 Obstructive sleep apnea (adult) (pediatric); I11.0 Hypertensive heart disease with heart failure; I48.91 Unspecified atrial fibrillation; E11.51 Type 2 diabetes mellitus with diabetic peripheral angiopathy without gangrene; J45.909 Unspecified asthma, uncomplicated; K21.9 Gastro-esophageal reflux disease without esophagitis; Z82.49 Family history of ischemic heart disease and other diseases of the circulatory system; Z87.891 Personal history of nicotine dependence; Z91.19 Patient's noncompliance with other medical treatment and regimen; Z99.81 Dependence on supplemental oxygen; Z79.899 Other long term (current) drug therapy; Z88.8 Allergy status to other drugs, medicaments and biological substances; Z88.7 Allergy status to serum and vaccine
CPT/HCPCS: 36415; 36600; 71010; 71250; 80048; 81001; 82805; 82947; 83605; 83880; 84484; 85007; 85027; 87040; 87086; 87641; 87804; 93005; 93306; 94640; 94660; 96365; 96375; G0481; J1650; J1815; J1885; J1940; J1956; J2543; J2920; J2930; J3010; J3370; J7040; J7512; J7620; 99291-25

== ENCOUNTER 2017-01-18 10:51 | Emergency (ER) | payer OTHER ==
[~2017-01-18] VITALS: Ht 162.6 cm; Wt 135.2 kg
[~2017-01-18 10:51] MED LIST changes: -ARIP30TA PO; +ARIP30TA4 PO; -HYDR-2666 PO; +HYDR-2758 PO
[2017-01-18 12:43] LABS: BILIRUBIN,URINE NEGATIVE (NEG); GLUCOSE,URINE NEGATIVE (NEG); NITRITE,URINE NEGATIVE (NEG); PROTEIN,URINE NEGATIVE (NEG-TRACE); UROBILINOGEN,URINE 0.2 mg/dL (0.2 mg/dL)
--- NOTE | 2017-01-18 12:45 | ED.ADGEN ---
Past Medical History Past Medical History: Alcoholism, Anemia, Anxiety, Asthma, Bronchitis, CHF, COPD, Depression, Diabetes-Type II, GERD, High Cholesterol, Hypertension, Hypothyroid, Other Additional Past Medical Histor: MORBID OBESITY, SUBSTANCE ABUSE, PERSONALITY DISORDER, OA, PVD Past Surgical History: , Tubal ligation Additional Past Surgical Histo: breast surgery, L LEG ORIF Alcohol Use: Sober Drug Use: Cocaine, Marijuana, Methamphetamine Adult General Chief Complaint Chief Complaint: PAIN CONTROL HPI HPI Patient is a 61 year old [place] female group home patient with chronic back pain who presents with diffuse low back pain since yesterday. Denies injury. No dysuria, quinsy urgency. No chills or sweats. Denies history of kidney stones. Patient takes hydrocodone for pain. With history of chronic respiratory failure, O2 dependent. Review of Systems Review of Systems ROS as per HPI. Current Medications Current Medications Current Medications Medications (Trade) Dose Ordered Sig/Vickie Start Time Stop Time Status Last Admin Dose Admin Oxycodone/ Acetaminophen (Percocet 10/325) 1 tab 1X ONCE 01/18/17 13:00 01/18/17 13:01 DC 01/18/17 13:14 1 TAB Allergies Allergies Allergies Coded Allergies Type Severity Reaction Last Updated Verified clonidine Allergy Severe swelling 01/13/15 Yes influenza virus vaccine qs 2014- (36 mos and up) Allergy Intermediate Yes meperidine HCl Allergy Intermediate 01/13/15 Yes pneumococcal vaccine Allergy Intermediate 09/01/15 Yes I S O L A T I O N *CONTACT* Allergy Unknown 10/16/15 Yes Physical Exam Physical Exam Constitutional: Well developed, well nourished, appears uncomfortable. Distress, HENT: Normocephalic, atraumatic, bilateral external ears normal, oropharynx moist, no oral exudates, nose normal. Eyes: PERRLA, EOMI, conjunctiva normal. Neck: Normal range of motion, no tenderness. Cardiovascular:Heart rate regular rhythm, no murmur. Lungs & Thorax: Bilateral breath sounds clear to auscultation. Abdomen: Bowel sounds normal, soft, no tenderness,obesity compromising exam. Skin: Warm, dry. Back: Diffuse low back pain and tenderness. No rebound rigidity or guarding. Extremities: No tenderness. Neurologic: Alert and oriented X 3, normal motor function, normal sensory function, no focal deficits noted. Psychologic: Affect normal, judgement normal, mood normal. Current Patient Data Vital Signs Vital Signs Date Time Temp Pulse Resp B/P (MAP) Pulse Ox O2 Delivery O2 Flow Rate FiO2 01/18/17 13:14 Nasal Cannula 2.0 01/18/17 12:28 77 01/18/17 11:58 18 01/18/17 10:53 98.2 175/93 (120) 94 98.2 Lab Values Laboratory Tests Test 01/18/17 12:30 Urine Collection Type Unknown Urine Color Yellow Urine Clarity Clear Urine pH 6.0 Urine Specific [place] <=1.005 Urine Protein Negative mg/dL (NEG-TRACE) Urine Glucose (UA) Negative mg/dL (NEG) Urine Ketones (Stick) Negative mg/dL (NEG) Urine Blood Negative (NEG) Urine Nitrite Negative (NEG) Urine Bilirubin Negative (NEG) Urine Urobilinogen Dipstick 0.2 mg/dL (0.2 mg/dL) Urine Leukocyte Esterase Small (NEG) Urine RBC 0 /HPF (0-2) Urine WBC Occ /HPF (0-4) Urine Squamous Epithelial Cells Mod /LPF Urine Bacteria 0 /HPF (0-FEW) Urine Hyaline Casts Few /HPF EKG EKG [] Radiology/Procedures Radiology/Procedures [] Course & Med Decision Making Course & Med Decision Making Pertinent Labs and Imaging studies reviewed. (See chart for details) [Patient's sting comfortable after treatment.. UA negative. CT lumbar spine nonacute. CT does reveal chronic findings of spinal stenosis. Recommend return group home for further pain management and consideration of neurosurgical referral. Dragon Disclaimer Dragon Disclaimer This electronic medical record was generated, in whole or in part, using a voice recognition dictation system. ROSMERY DE LEON DO Jan 18, 2017 12:45
[2017-01-18 12:57] LABS: BACTERIA,URINE 0 /HPF (0-FEW); RBC,URINE 0 /HPF (0-2); SQUAMOUS EPITHELIAL CELL,UR MOD /LPF; WBC,URINE OCC /HPF (0-4)
[2017-01-18] MEDS ORDERED: oxyCODONE/APAP 10/325 1 TAB TABLET PO ONE (13:00)
--- NOTE | 2017-01-18 14:11 | RAD ---
CT scan of the lumbar spine without contrast 01/18/2017 Clinical history: Low back pain. Technique: Unenhanced, contiguous, 0.625 mm axial sections were obtained through the lumbar spine. 3 mm reconstructed sagittal, axial and coronal images were obtained. One or more of the following individualized dose reduction techniques were utilized for this study: 1. Automated exposure control. 2. Adjustment of the mA and/or kV according to patient size. 3. Use of iterative reconstruction technique. Findings: Images from this study are degraded by patient motion. Sagittal and coronal reconstructed images demonstrate very mild S-shaped curvature of the thoracolumbar spine. Degenerative changes are seen involving the lower thoracic and throughout the lumbar disc spaces consisting of vertebral endplate sclerosis and minimal to mild anterior vertebral body osteophyte formation. No fracture or subluxation lumbar vertebrae is definitely seen. On the axial images the changes of degenerative disc disease are seen involving the lumbar spine. These consist of mild to moderate generalized disc bulges, degenerative changes involving the facet joints and mild to moderate ligamentum flavum hypertrophy. These findings result in moderate to severe central spinal canal stenosis at L3-4, severe central spinal canal stenosis at L4-5 and mild central spinal canal stenosis with moderate to severe bilateral neural foraminal stenosis at L5-S1. Impression: The changes of degenerative disc disease are seen throughout the lumbar spine. These findings result in moderate to severe central spinal canal stenosis at L3-4, severe central spinal canal stenosis at L4-5 and mild central spinal canal stenosis at L5-S1. Moderate to severe bilateral neural foraminal stenosis is seen at L5-S1. No acute osseous abnormality is seen.
[2017-01-18 15:28] VITALS: BP 119/68
== END 2017-01-18 17:41 | disposition home or self-care (01) ==
LOC: ER 10:51
DX: G89.29 Other chronic pain (principal); M54.5 Low back pain; E03.9 Hypothyroidism, unspecified; E11.9 Type 2 diabetes mellitus without complications; I11.0 Hypertensive heart disease with heart failure; I50.9 Heart failure, unspecified; J44.9 Chronic obstructive pulmonary disease, unspecified; E78.00 Pure hypercholesterolemia, unspecified; K21.9 Gastro-esophageal reflux disease without esophagitis; I73.9 Peripheral vascular disease, unspecified; M19.90 Unspecified osteoarthritis, unspecified site; M48.06 Spinal stenosis, lumbar region; E66.01 Morbid (severe) obesity due to excess calories; Z68.43 Body mass index [BMI] 50.0-59.9, adult; Z98.51 Tubal ligation status; Z98.890 Other specified postprocedural states; F14.10 Cocaine abuse, uncomplicated; F10.10 Alcohol abuse, uncomplicated; F12.10 Cannabis abuse, uncomplicated; F15.10 Other stimulant abuse, uncomplicated; Z87.09 Personal history of other diseases of the respiratory system; Z88.7 Allergy status to serum and vaccine; Z88.8 Allergy status to other drugs, medicaments and biological substances; Z91.041 Radiographic dye allergy status
CPT/HCPCS: 72131; 81001; 87086; 99285-25